=== PATIENT | female | born 1985 ===

== ENCOUNTER 2019-12-10 21:28 | Emergency (ER) | payer MEDICAID, SELFPAY ==
[2019-12-10 21:52] VITALS: BP 122/70; PULSE 76; RESP 18; TEMP 36.4; O2SAT 97
--- NOTE | 2019-12-10 22:14 | ED_ITS ---
HPI - Female Genitourinary General Chief complaint: Back Pain/Injury Stated complaint: BACK PAIN Time Seen by Provider: 12/10/19 22:13 Source: patient Mode of arrival: ambulatory Limitations: no limitations History of Present Illness HPI Narrative: 34-year-old female presents with several days of lower back pain and dysuria. She has been taking [id number]-[id number] azo with minimal effect. She does not report any fevers or chills, does not report any risk of sexually transmitted infection. She denies chest pain pressure, palpitations, shortness of breath, fevers, chills, abdominal pain, abdominal distention, weakness, dizziness, and edema. MD elicited complaint: dysuria, UTI and back pain Onset (ago): day(s) (3) Location of symptoms: low back Severity: moderate Severity scale (1-10): 5 Quality of pain: dull and aching Consistency: constant Vaginal discharge: none Vaginal bleeding: none Urinary symptoms: Dysuria, Urgency and Frequency Exacerbating factors: urination and movement Relieving factors: none Associated symptoms: denies other symptoms Sexual activity: Yes Patient : No Related Data Previous Rx's Medication Instructions Recorded ibuprofen 600 mg PO Q8H PRN #30 tab 12/11/19 levofloxacin 500 mg PO DAILY 5 Days #5 tab 12/11/19 Allergies Allergy/AdvReac Type Severity Reaction Status Date / Time shellfish derived Allergy Severe SWELLING/HI Verified 12/10/19 22:27 [SHELLFISH DERIVED] VES Review of Systems Review of Systems: Constitutional: No Fever, No Chills ENT/Mouth: No sore throat Eyes: No Eye Pain, No Swelling, No Redness Cardiovascular: No Chest Pain, No SOB Respiratory: No Cough, No Sputum, No Wheezing Gastrointestinal: No Nausea, No Vomiting, No Diarrhea, No abdominal pain Genitourinary: positive Dysuria, positive urinary frequency, positive Hematuria, Positive lower back pain, No Flank Pain, No hesitancy Musculoskeletal: No joint pain, No Myalgias Skin: No Skin Lesions, No rash Neuro: No Weakness, No Numbness, No Headache Psych: No Anxiety/Panic, No Depression Heme/Lymph: No Bruising, No Lymphadenopathy Endocrine: No Polyuria, No Polydipsia Yes all other systems are reviewed and are negative [facility] Past Medical History Attestation statement: The following information was validated with the patient. Surgical History Hx of section Social History Social History Advance Directives: No Physical Exam Vital Signs: Vital Signs: Vital Signs Temp Pulse Resp BP Pulse Ox 12/10/19 22:24 97.6 F 76 18 122/70 97 12/10/19 21:52 97.6 F 76 18 122/70 97 Body Mass Index 31.4 Appearance: Alert. Oriented X3. No acute distress. Head: Normal external exam. Normocephalic. Atraumatic. No Castrejon signs noted. No raccoon eyes noted Eyes: PERRLA. EOMI. Conjunctiva and sclera normal. Eyelids normal. ENT: TM's Normal. Pharynx normal. Uvula midline. Moist mucous membranes. No trismus noted. No drooling noted. No muffled voice noted. Neck: Normal inspection. Neck supple. No adenopathy. Thyroid Normal. No meningeal signs. No neck mass noted. CVS: Normal heart rate and rhythm. Heart sound normal. No murmurs noted. Pulses equal to all extremities. Respiratory: No respiratory distress. Painless inspiration. Breath sounds normal. No wheezes/rales/rhonchi noted. Chest nontender. No accessory muscle usage noted or decreased air movement noted. Abdomen: Soft and nontender. Bowel sounds normal in all 4 quadrants. No distention noted. No organomegaly noted. No visible injury noted. Back: No CVA tenderness. Full range of motion noted. Skin: Skin warm and dry. Normal skin color. Normal skin turgor. No rashes/lesions/lacerations noted. Extremities: No lower extremity edema. Extremities exhibit normal range of motion. Extremities nontender. Neuro: cranial nerves 2-12 intact, no focal neural deficits, strength 5/5 to all extremities, No motor deficit. No sensory deficit. Reflexes normal. Course Course Course Narrative: 34-year-old female presents with urinary symptoms. We will order urinalysis. She is afebrile, nontoxic appearing, does not have any CVA tenderness, no abdominal tenderness to deep palpation. Vital signs are hemodynamically stable and within normal limits. urinalysis incomplete due to patient's azo use. Plan of care is to treat for urinary tract infection, which patient agrees to. Patient will be discharged home in stable condition. Patient verbalized understanding of and agrees to plan of care discharge home. MDM - Female Genitourinary Differential Diagnosis Differential diagnosis: Likely urinary tract infection and cystitis Medical Records Attestation: I reviewed the patient's medical records. Lab Data Attestation: I reviewed the patient's lab results. Labs: Lab Results 12/10/19 12/10/19 Range/Units 23:01 23:01 Urine Color ORANGE Urine Appearance CLEAR Urine pH TNP Ur Specific Bricelyn TNP Urine Protein TNP Urine Glucose (UA) TNP Urine Ketones TNP Urine Blood TNP Urine Nitrite TNP Ur Leukocyte Esterase TNP Urine RBC 0-2 (0) /HPF Urine WBC 0-2 (0-4) /HPF Ur Squamous Epith Cells 1+ /LPF Urine Bacteria TRACE /LPF Urine Test NEGATIVE (NEGATIVE) Discharge Plan Discharge Clinical Impression: Urinary tract infection Qualifiers: Urinary tract infection type: acute cystitis Hematuria presence: with hematuria Qualified Code(s): N30.01 - Acute cystitis with hematuria Patient Disposition: Home, Self-Care Instructions: Urinary Tract Infection in Women (ED) Additional Instructions: you were evaluated for dysuria and lower back pain. We are treating you for urinary tract infection. Please take Levaquin as directed. This medication is an antibiotic. We prescribed Motrin. Please take this medication as directed for pain management. Please drink plenty of fluids. If symptoms persist, get worse, or are concerning please return to the emergency department immediately. Thank you for choosing this emergency department for evaluation. Please follow-up with primary care physician as needed. Return to the emergency department for any new, concerning, or worsening symptoms. Prescriptions: New levofloxacin 500 mg tablet 500 mg PO DAILY 5 Days Qty: 5 RF: 0 ibuprofen 600 mg tablet 600 mg PO Q8H PRN (Reason: fever or pain) Qty: 30 RF: 0
[2019-12-10 22:24] VITALS: BP 122/70; PULSE 76; RESP 18; TEMP 36.4; O2SAT 97; BMI 31.4
[2019-12-10 23:09] LABS: Appearance Urine CLEAR
[2019-12-10 23:10] LABS: Color Urine ORANGE
[2019-12-10 23:12] LABS: UPreg QC Valid YES; Urine Pregnancy NEGATIVE (NEGATIVE)
[2019-12-10 23:41] LABS: RBC Urine 0-2 /HPF (0); Squamous Epithelial Cell Urine 1+ /LPF; WBC Urine 0-2 /HPF (0-4)
[2019-12-10 23:42] LABS: Bacteria Urine TRACE /LPF
[2019-12-11] MEDS: levoFLOXacin 500 MG TABLET PO (01:10)
[2019-12-11] MEDS: Ibuprofen 600 MG TABLET PO (01:10)
== END 2019-12-11 01:15 | disposition home or self-care (01) ==
PROVIDERS: Nurse Practitioner Family; Emergency Provider Emergency Medicine; PCP Internal Medicine Geriatric Medicine
DX: M54.5 Low back pain (principal); N30.01 Acute cystitis with hematuria; Z79.899 Other long term (current) drug therapy
CPT/HCPCS: 81003; 81015; 81025; 99283

== ENCOUNTER 2020-09-19 19:44 | Emergency (ER) | payer MEDICAID, SELFPAY | END 2020-09-19 21:22 | disposition left against medical advice (07) | PROVIDERS: Emergency Provider Emergency Medicine; PCP Internal Medicine Geriatric Medicine | DX: M54.9 Dorsalgia, unspecified (principal) ==

== ENCOUNTER 2021-01-11 22:21 | Emergency (ER) | payer MEDICAID, SELFPAY ==
[2021-01-11 22:25] VITALS: BP 143/93; PULSE 75; RESP 18; TEMP 36.6; O2SAT 98; BMI 31.4
--- NOTE | 2021-01-11 23:11 | ED.HA ---
HPI - Headache General Chief Complaint: Headache Stated Complaint: headache Time Seen by Provider: 01/11/21 23:04 Source: patient Mode of arrival: ambulatory Limitations: no limitations History of Present Illness HPI Narrative: 35-year-old female presenting to the ER with migraine headache for the last 2 days. She states it came on gradually and has not really gone away with the help of Tylenol. The pain is located on both sides and top of her head. It radiates down into her neck and she has some sore muscles. She reports some photosensitivity but no sensitivity to sound. She reports some sweating episodes throughout the day today but denies any fever or chills. She denies any vision changes, dizziness, confusion, lethargy, weakness, numbness, tingling. She states she used to get migraine headaches a while ago but it has been a few years. MD elicited complaint: headache and migraine Pertinent past history: migraines Onset (ago): day(s) (2) Onset description: gradually Location: down into neck and generalized Severity: moderate Pain scale (0-10): 7 Quality & Timing: aching and throbbing Exacerbating factors: none Relieving factors: nothing Context: occurred at rest Associated symptoms: photophobia and eye pain Treatments prior to arrival: acetaminophen Related Data Previous Rx's Medication Instructions Recorded ibuprofen 600 mg tablet 600 mg PO Q8H PRN #30 tab 12/11/19 levofloxacin 500 mg tablet 500 mg PO DAILY 5 Days #5 tab 12/11/19 [id number]-[id number] 1 cap PO Q6H PRN #10 cap 01/11/21 50 mg-300 mg-40 mg capsule (Fioricet) Allergies Allergy/AdvReac Type Severity Reaction Status Date / Time shellfish derived Allergy Severe SWELLING/HI Verified 12/10/19 22:27 [SHELLFISH DERIVED] VES Review of Systems Review of Systems: Constitutional: No Fever, No Chills ENT/Mouth: No sore throat, No Rhinorrhea, No Swallowing Difficulty Eyes: + Eye Pain, No Swelling, No Redness Cardiovascular: No Chest Pain, No SOB Respiratory: No Cough, No Sputum Gastrointestinal: No Nausea, No Vomiting, No Diarrhea, No abdominal Pain Musculoskeletal: No joint pain, + Myalgias Skin: No Skin Lesions, No rash Neuro: No Weakness, No Numbness, No Dizziness, + Headache Psych: No Anxiety/Panic, No Depression Heme/Lymph: No Bruising, No Lymphadenopathy Endocrine: No Polyuria, No Polydipsia PMF Past Medical History Surgical History Hx of section Social History Social History Advance Directives: No Advance Directives Information Provided: No Physical Exam Vital Signs: Vital Signs: Last Vital Signs Temp 98 F 01/11/21 22:25 Pulse 75 01/11/21 22:25 Resp 18 01/11/21 22:25 BP 143/93 H 01/11/21 22:25 Pulse Ox 98 01/11/21 22:25 Body Mass Index 31.4 Appearance: Alert. Oriented X3. No acute distress. Eyes: Pupils equal, round and reactive to light. EOMI, no nystagmus. ENT: Pharynx normal. Neck: Normal inspection. Neck supple. CVS: Normal heart rate and rhythm. Pulses normal. Respiratory: No respiratory distress. Breath sounds normal. Abdomen: Soft and nontender. +BS x4 Skin: Skin warm and dry. Normal skin color. Normal skin turgor. No rashes. Extremities: No lower extremity edema. Neuro: Oriented X 3. No motor deficit. No sensory deficit. Ambulates with steady gait Course Course Course Narrative: 35 yo female presenting with migraine headache for the last 2 days. She has no fever meningeal signs. She appears well on exam. No neurological deficits. Will treat with Toradol, Reglan, Benadryl and reassess. Reevaluation(s) Reevaluation #1: Patient feels improved after meds. She is stable for discharge home. MDM - Headache Lab Data Labs: Lab Results 01/11/21 Range/Units 23:12 COVID-19 ([facility]) Negative (Negative) COVID-19 Clin Com See Note Discharge Plan Discharge Clinical Impression: Headache Qualifiers: Headache type: other headache syndrome Qualified Code(s): G44.89 - Other headache syndrome Patient Disposition: Home, Self-Care Instructions: Acute Headache (ED) Prescriptions: New vzmmcedtwn-twekomdtjurwb-tqmz [Fioricet] 50-300-40 mg capsule 1 cap PO Q6H PRN (Reason: headache) Qty: 10 RF: 0 No Action levofloxacin 500 mg tablet 500 mg PO DAILY 5 Days Qty: 5 RF: 0 ibuprofen 600 mg tablet 600 mg PO Q8H PRN (Reason: fever or pain) Qty: 30 RF: 0
[2021-01-11] MEDS: diphenhydrAMINE HCL 25 MG TABLET 50 MG PO (23:33)
[2021-01-11] MEDS: Ibuprofen 600 MG TABLET PO (23:33)
[2021-01-11 23:35] LABS: COVID-19 Test Negative (Negative)
[2021-01-11] MEDS: Metoclopramide HCl 5 MG TABLET PO (23:50)
[2021-01-12] MEDS: Acetaminophen 325 MG TABLET 975 MG PO (01:10)
== END 2021-01-12 01:25 | disposition home or self-care (01) ==
PROVIDERS: Physician Assistant; Emergency Provider Student in an Organized Health Care Education/Training Program; PCP Internal Medicine Geriatric Medicine
DX: G44.89 Other headache syndrome (principal); Z79.899 Other long term (current) drug therapy; Z20.822 Contact with and (suspected) exposure to COVID-19
CPT/HCPCS: 36415; 87635; 99283; Q0163

== ENCOUNTER 2021-02-27 11:03 | Outpatient (REF) | payer MEDICAID, SELFPAY ==
[2021-02-27 12:53] LABS: Binax Internal Control QC Valid; Binax Now Covid-19 Ag Positive (Negative)
== END 2021-02-27 11:04 | disposition home or self-care (01) ==
LOC: HO.LAB 11:03
PROVIDERS: Visit Provider Internal Medicine
DX: Z20.822 Contact with and (suspected) exposure to COVID-19 (principal)
CPT/HCPCS: 36415; C9803

== ENCOUNTER 2021-03-17 21:02 | Emergency (ER) | payer MEDICAID, SELFPAY ==
--- NOTE | ~2021-03-17 | XR_ITS ---
EXAMINATION: XR CHEST CLINICAL INFORMATION: Cough and shortness of breath COMPARISON: 07/09/2016 TECHNIQUE: Frontal view of the chest was obtained. FINDINGS: No significant abnormality is noted involving the heart, lungs, mediastinum, bony thorax or soft tissues. XR/XR chest 1V IMPRESSION: Unremarkable examination.
[2021-03-17 21:25] VITALS: BP 123/79; PULSE 86; RESP 18; TEMP 35.8; O2SAT 99; BMI 32.2
[2021-03-17 22:07] LABS: COVID-19 Test Negative (Negative); IDNOW Serial# 9DD0AD1C
--- NOTE | 2021-03-18 00:10 | ED_ITS ---
HPI - General Adult General Chief complaint: Dyspnea Stated complaint: asthma Time Seen by Provider: 03/18/21 00:08 Source: patient Mode of arrival: ambulatory Limitations: no limitations History of Present Illness HPI narrative: Patient is a 35 year old female presenting to the emergency department today with wheezing. Patient states that she has a history of asthma and has been wheezing more the last few days. Patient denies any dizziness, lightheadedness, abdominal pain, nausea, vomiting, fever, chills, blurry vision, double vision, loss of vision, chest pain, difficulty breathing, shortness of breath, back pain, night sweats, pain with urination, increased urinary frequency, increased urinary urgency, blood in her urine or stool, syncope or a near syncopal episode, recent trauma or falls, bowel incontinence, bladder incontinence, bowel retention, bladder retention, or any other complaints at this time. Onset (ago): day(s) Relieving factors: none Exacerbating factors: none Associated symptoms: denies other symptoms Related Data Previous Rx's Medication Instructions Recorded ibuprofen 600 mg tablet 600 mg PO Q8H PRN #30 tab 12/11/19 levofloxacin 500 mg tablet 500 mg PO DAILY 5 Days #5 tab 12/11/19 [id number] 1 cap PO Q6H PRN #10 cap 01/11/21 50 mg-300 mg-40 mg capsule (Fioricet) Allergies Allergy/AdvReac Type Severity Reaction Status Date / Time shellfish derived Allergy Severe SWELLING/HI Verified 12/10/19 22:27 [SHELLFISH DERIVED] VES Review of Systems Verdana 4l Constitutional: Verdana 4d Constitutional: Verdana 4d Verdana 4d Reports no additional constitutional complaints, Denies chills, Denies fever(s) and Denies night sweats Verdana 4l Eyes: Verdana 4d Verdana 4d Eyes: Verdana 4d Reports no additional eye complaints, Denies blurry vision, Denies change in vision, Denies diplopia, Denies eye discharge, Denies loss of vision and Denies eye pain Verdana 4l ENT: Verdana 4d Denies dizziness Verdana 4l Cardiovascular: Verdana 4d Cardiovascular: Verdana 4d Verdana 4d Reports no additional cardiovascular complaints, Denies chest pain, Denies lightheadedness, Denies Loss of Consciousness and Denies dyspnea Verdana 4l Respiratory: Verdana 4d Verdana 4d Respiratory: Verdana 4d Reports no additional respiratory complaints, Denies dyspnea and Reports wheezing Verdana 4l Gastrointestinal: Verdana 4d Gastrointestinal: Verdana 4d Verdana 4d Reports no additional gastrointestinal complaints, Denies abdominal pain, Denies melena, Denies hematochezia, Denies change in bowel habits and Denies change in stool character Verdana 4l Genitourinary: Verdana 4d Verdana 4d Genitourinary: Verdana 4d Denies hematuria, Denies urinary frequency, Denies dysuria, Denies urinary incontinence, Denies urinary hesitancy and Denies urinary urgency Verdana 4l Musculoskeletal: Verdana 4d Musculoskeletal: Verdana 4d Verdana 4d Reports no additional musculoskeletal complaints, Denies numbness and Denies tingling Verdana 4l Neurologic: Verdana 4d Denies dizziness, Denies loss of vision, Denies numbness and Denies tingling Verdana 4l Psychiatric: Verdana 4d Verdana 4d Psychiatric: Verdana 4d Reports no additional psychiatric complaints Verdana 4l Endocrine: Verdana 4d Verdana 4d Endocrine: Verdana 4d Reports no additional endocrine complaints Verdana 4l Hematologic/Lymphatic: Verdana 4d Hematologic/Lymphatic: Verdana 4d Verdana 4d Reports no additional hematologic/lymphatic complaints Verdana 4l Allergic/Immunologic: Verdana 4d Allergic/Immunologic: Verdana 4d Verdana 4d Reports no additional allergic/immunologic complaints and Reports wheezing PMFSH Past Medical History Attestation statement: The following information was validated with the patient. Source: old records reviewed Medical History Asthma Surgical History Hx of section Social History Social History Advance Directives: No Patient : No Physical Exam Verdana 4l Vital Signs: Verdana 4d Verdana 4d Vital Signs: Verdana 4d Verdana 4Bd Last Vital Signs Verdana 4d Coffee Weigher New 4d Coffee Weigher New 4d Temp 96.5 F L 03/17/21 21:25 Coffee Weigher New 4d Pulse 74 03/18/21 01:02 Coffee Weigher New 4d Resp 14 03/18/21 01:02 BP 132/88 03/18/21 00:31 Pulse Ox 98 03/18/21 00:31 BMI result Body Mass Index 32.2 Const: General: cooperative, no acute distress, alert and awake Nutritional Appearance: well nourished Orientation/consciousness: patient oriented x3 Limitations: no limitations HENMT: Head: Yes normal to inspection and Yes atraumatic Ears: hearing grossly normal bilaterally and external ears normal General nose exam: Normal external nose present, no nasal discharge noted and no epistaxis Face and sinus: Yes normal facial exam, No abrasion and No laceration Mouth: Normal oral and palatal mucosa present, no drooling and no muffled voice Eyes: General: appearance normal, both eyes and all related structures Periorbital: periorbital findings normal Eyelids: Yes eyelids normal Conjunctivae: conjunctivae normal Pupils: Equal, round and reactive pupils present EOM: EOMs intact bilaterally Neck: Neck: Yes normal visual inspection, Yes full ROM and Yes no lymphadenopathy Chest: Chest palpation & inspection: normal inspection of the chest Resp: Effort & Inspection: normal respiratory effort and able to speak in complete sentences Auscultation: wheezes scattered wheezes and throughout Cardio: Rate: regular rate Rhythm: regular rhythm GI: Inspection: Yes normal to inspection Neuro: General: patient oriented x3 and moves all extremities Cranial nerves: Yes Equal, round and reactive pupils present Cognition (Neuro): normal cognition Motor exam (neuro): 5/5 motor strength present throughout Sensory Exam: Normal double simultaneous stimulation for sensation Coordination: dtgtqw-jj-efoy test normal Extrem: General: Yes normal to inspection, Yes full ROM and Yes capillary refill normal Psych: Appearance: grossly normal Mental Status: mental status grossly normal A ffect: normal affect Attitude: cooperative Thought process: Normal thought process present Thought content: Normal thought content present Insight: Good insight present (Psych) Course Course Course Narrative: patient's chest x-ray was read by the radiologist as having no acute process. Medical Decision Making MDM Narrative Medical decision making narrative: Patient is a 35 year old female presenting to the emergency department today with wheezing. Patient's physical exam showed bilateral wheezing throughout but was otherwise unremarkable. Patient's rapid COVID-19 test was negative. Patient's chest x-ray showed no acute process. I explained my physical exam findings as well as all test results to the patient. I answered all questions asked by the patient. Patient received IM Decadron and an hour long duoneb which she stated helped her symptoms significantly. I stressed the importance of the patient taking her medication as prescribed. I stressed the importance of the patient following up with her primary care provider. I stressed the importance of the patient returning to the emergency department immediately if her symptoms were to worsen or if she were to develop any dizziness, shortness of breath, difficulty breathing, chest pain, blurry vision, loss of vision, nausea, vomiting, abdominal pain, fever, chills, back pain, or any other complaints. Patient verbalized agreement and understanding with this treatment plan and discharge. Differential Diagnosis Differential Diagnosis: asthma exacerbation, wheezing, medical examination Medical Records Medical records reviewed: Yes I reviewed the patient's medical records. Lab Data Lab results reviewed: Yes I reviewed the patient's lab results. Labs: Lab Results 03/17/21 Range/Units 21:43 COVID-19 ([facility]) Negative (Negative) COVID-19 Clin Com See Note Discharge Plan Discharge Clinical Impression: Asthma Patient Disposition: Home, Self-Care Additional Instructions: Call to discuss finding and establishing with a primary care provider. Prescriptions: No Action levofloxacin 500 mg tablet 500 mg PO DAILY 5 Days Qty: 5 0RF ibuprofen 600 mg tablet 600 mg PO Q8H PRN (Reason: fever or pain) Qty: 30 0RF [id number]-[id number] [Fioricet] 50-300-40 mg capsule 1 cap PO Q6H PRN (Reason: headache) Qty: 10 0RF Print Language: Honduran
[2021-03-18 00:31] VITALS: BP 132/88; PULSE 72; RESP 16; O2SAT 98
[2021-03-18] MEDS: dexAMETHasone sod phosphate 10 MG/ML VIAL IM (00:33)
[2021-03-18] MEDS: Albuterol/Iprat 2.5/0.5MG 3 ML AMPUL.NEB INHALE (01:00)
[2021-03-18] MEDS: Albuterol Sulfate (0.083%) 2.5 MG/3 ML VIAL.NEB 7.5 MG INHALE (01:01)
[2021-03-18 01:02] VITALS: PULSE 74; RESP 14; O2SAT 97
[2021-03-18 01:51] VITALS: BP 136/81; PULSE 88; RESP 16; O2SAT 99
== END 2021-03-18 02:04 | disposition home or self-care (01) ==
PROVIDERS: Emergency Provider Emergency Medicine
DX: J45.909 Unspecified asthma, uncomplicated (principal); Z20.822 Contact with and (suspected) exposure to COVID-19
CPT/HCPCS: 71045; 87635; 94640; 94644; 96372; 99284; J1100

== ENCOUNTER 2022-06-18 10:23 | Outpatient (REF) | payer MEDICAID, SELFPAY ==
--- NOTE | ~2022-06-18 | XR_ITS ---
EXAMINATION: XR CHEST 2 VIEWS CLINICAL INFORMATION: Chest pain. COMPARISON: Prior chest radiographs, most recently 03/07/2017. TECHNIQUE: Frontal and lateral views of the chest were obtained. FINDINGS: The heart, great vessels, pulmonary vasculature and mediastinum are normal. The lungs show no focal infiltrate, effusion or pneumothorax. There is no acute osseous abnormality. XR/XR chest 2V IMPRESSION: No active cardiopulmonary disease.
[2022-06-18 11:07] LABS: MANUAL DIFF FLAG NO
[2022-06-18 12:31] LABS: Basophils Percent Auto 0.4 % (0-2); Eosinophils Absolute Auto 0.2 X10*3/uL (0.0-0.4); Eosinophils Percent Auto 3.1 % (0-4); Hematocrit 37.4 % (37.0-47.0); Hemoglobin 12.3 g/dl (12.0-16.0); Imm Gran Abs Auto 0.02 X10*3/uL (0.00-0.03); Imm Gran Pct Auto 0.4 % (0.0-0.4); Lymphocytes Absolute Auto 1.9 X10*3/uL (1.2-4.9); Lymphocytes Percent Auto 34.3 % (20-40); Mean Corpuscular HGB Conc 32.9 g/dl (31.0-35.0); Mean Corpuscular Hemoglobin 28.9 pg (27.0-33.0); Mean Corpuscular Volume 87.8 fL (80.0-98.0); Monocytes Absolute Auto 0.5 X10*3/uL (0.1-1.2); Monocytes Percent Auto 8.5 % (2-11); Neutrophils Absolute Auto 2.9 x10*3/uL (2.0-8.3); Neutrophils Percent Auto 53.3 % (45-73); Platelet Count 204 X10*3/uL (160-400); Red Blood Count 4.26 X10*6/uL (4.20-5.50); Red Cell Distribution Width 14.1 % (11.0-16.0); White Blood Count 5.4 X10*3/uL (4.8-10.8)
[2022-06-18 13:17] LABS: Erythrocyte Sedimentation Rate 12 MM/HR (0-20)
== END 2022-06-18 10:24 | disposition home or self-care (01) ==
LOC: HO.LAB 10:23
PROVIDERS: PCP Internal Medicine Geriatric Medicine; Visit Provider Hospitalist
DX: L20.9 Atopic dermatitis, unspecified (principal); R07.9 Chest pain, unspecified; J45.40 Moderate persistent asthma, uncomplicated; J30.9 Allergic rhinitis, unspecified
CPT/HCPCS: 36415; 71046; 82785; 85025; 85652; 86003; 99202

== ENCOUNTER 2022-08-18 15:21 | Emergency (ER) | payer OTHER, SELFPAY ==
--- NOTE | 2022-08-18 | ECG_ITS ---
Test Reason : cp Blood Pressure : / mmHG Vent. Rate : 074 BPM Atrial Rate : 074 BPM P-R Int : 124 ms QRS Dur : 086 ms QT Int : 394 ms P-R-T Axes : 029 022 024 degrees QTc Int : 437 ms Normal sinus rhythm Normal ECG When compared with ECG of 20-MAY-2018 10:15, No significant change was found Referred By: Vanessa Galeas Electronically Signed By:Charles Siegel
[2022-08-18 15:36] VITALS: BP 123/79; PULSE 91; RESP 17; TEMP 36.2; O2SAT 97
[2022-08-18 15:42] VITALS: BP 123/79; BP 128/90; PULSE 91; PULSE 94; RESP 17; TEMP 36.2; O2SAT 97; BMI 30.9
[2022-08-18 16:43] LABS: Anion Gap 13 (12-20); Blood Urea Nitrogen 12 mg/dL (9-16); Calcium 9.8 mg/dL (8.4-10.2); Carbon Dioxide 23 mmol/L (22-29); Chloride 109 mmol/L (96-108); Creatinine Clr Calc Pharmacy 94.9; Estimated Glomerular Filt Rate > 60; Glucose Random 128 mg/dL (60-115); Potassium 3.8 mmol/L (3.3-5.1); Sodium 141 mmol/L (135-145)
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
[2022-08-18] MEDS: Acetaminophen 325 MG TABLET 975 MG PO (16:54)
== END 2022-08-18 18:47 | disposition home or self-care (01) ==
PROVIDERS: Registered Nurse Emergency; Emergency Provider Emergency Medicine Emergency Medical Services; PCP Internal Medicine Geriatric Medicine
DX: Z04.1 Encounter for examination and observation following transport accident (principal); R07.9 Chest pain, unspecified; Z87.891 Personal history of nicotine dependence
CPT/HCPCS: 36415; 71045; 80048; 84484; 85027; 93005; 99283; 99284

== ENCOUNTER 2022-11-23 10:20 | Outpatient (REF) | payer MEDICAID, SELFPAY ==
[2022-11-29 01:38] LABS: HPV mRNA E6/E7 rflx Not Detected (Not Detected)
== END 2022-11-23 10:21 | disposition home or self-care (01) ==
LOC: HO.LNP 10:20
PROVIDERS: PCP Internal Medicine Geriatric Medicine; Visit Provider Advanced Practice Midwife
DX: Z01.419 Encounter for gynecological examination (general) (routine) without abnormal findings (principal); N94.6 Dysmenorrhea, unspecified; Z11.3 Encounter for screening for infections with a predominantly sexual mode of transmission; Z98.51 Tubal ligation status; Z79.899 Other long term (current) drug therapy; Z98.890 Other specified postprocedural states
CPT/HCPCS: 0353U; 87480; 87510; 87624; 87660; 88142; 99385

== ENCOUNTER 2022-11-23 10:20 | Outpatient (AMB) | payer MEDICAID, SELFPAY ==
--- NOTE | 2022-11-23 10:43 | MHC.OFFVIS ---
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 Present (Aidyn) Allergies shellfish derived [SHELLFISH DERIVED] Allergy (Severe, Verified 11/23/22 10:49) SWELLING/HIVES Medication List - Last Reconciled 11/23/22 by Kina Mendez CNM albuterol sulfate 90 mcg/actuation (Ventolin HFA) 2 puffs inhalation Q6H PRN budesonide-formoterol 160-4.5 mcg/actuation (Symbicort) 2 puffs inhalation BID 30 days uxjjkbncsn-ibnovatkvcobu-murz 50-300-40 mg (Fioricet) 1 cap PO Q6H PRN cyclobenzaprine 5 mg PO TID PRN fluticasone propion-salmeterol 250-50 mcg/dose (Advair Diskus) 1 inh inhalation Q12H fluticasone propionate 50 mcg/actuation (Flonase Allergy Relief) 1 spray intranasal Q12H ibuprofen 600 mg PO Q8H PRN ibuprofen 600 mg PO Q8H PRN lidocaine 5% 1 patch topical DAILY montelukast 10 mg PO DAILY Is last menstrual period known: No (October but not sure of the date) Post menopausal: No HPI dysmenorrhea/PCP referral HPI Details 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 She does have a history of abnormal Pap smears. She says she has been healthy and she is doing well she had a tubal ligation after her last at some point so she is not worried about she does get regular periods and they are getting a little cramp ear as time goes by but they are not even enough for her to take ibuprofen or anything so she just deals with it. Her last period was sometime the middle of October so she is expecting 1 maybe in the few days or a week. She says her only health problem is her asthma but she got a new puppy this year was the [place] so she thinks the hair might be contributing to that a little bit to she will be getting her vaccines for COVID and otherwise when they come up. She is not really worried about STIs but is open to testing will long with the Pap but she had blood work done with her primary so she is not worried she goes to the [facility] with Dr. Preston Her children delivered with the midwifery practice are 22 and 12. [facility] Medical History (Updated 11/23/22 @ 11:41 by Kina Mendez CNM) Hx of LEEP (loop electrosurgical excision procedure) of cervix complicating Chest pain Atopic dermatitis Chronic allergic rhinitis Asthma Surgical History (Updated 11/23/22 @ 11:41 by Kina Mendez CNM) Hx of bilateral breast reduction surgery Hx of tubal ligation Social History (Updated 11/23/22 @ 10:53 by SOURAV Carey) Patient Tobacco Use Status: Current someday Tobacco user Tobacco use type: Cigarette Cigarettes Per Day: 2 Female Reproductive History Menstrual Age of Menarche: 13 control method: other (tubal ligation) Total pregnancies: 3 Full term: 2 Number of Living Children: 2 Ab induced: 1 Date of last pap smear: 10/27/08 (ASCUS) History of abnormal pap smear: Yes (LORI 2 2007, ASCUS 2005) Physical Exam Vital Signs: BMI result Body Mass Index 31.6 Const General: healthy appearing, comfortable, no acute distress, well developed and alert Nutritional Appearance: average body habitus Orientation/consciousness: patient oriented x3 Limitations: no limitations HEENT Head: Yes normocephalic Neck Neck: Yes normal visual inspection Chest Chest palpation & inspection: normal inspection of the chest Breast/axilla inspection: normal inspection of the breasts and normal inspection of the axillae Breast/axilla palpation: normal palpation of the breasts and normal palpation of the axillae Resp Effort & Inspection: normal respiratory effort GI Inspection: Yes normal to inspection, No Abdominal wall edema and No distended Palpation (GI): Soft to palpation and nontender Other: Cervix difficult to visualize secondary to patient tension during exam. So bimanual necessary to find cervix so gel might possibly obscure Pap. Cervix was posterior parous normal appearing mucus was completely normal appearing. Cervix long thick closed mobile nontender uterus midposition to anteverted nontender adnexa nontender extremely strong tone with involuntary Kegel's patient was able to control him as well.. General: Yes bladder normal to palpation External Female Exam: normal external appearance and normal appearance of the urethra Speculum Exam - Vagina: normal appearance of the vagina, normal palpation and normal vaginal discharge Speculum Exam - Cervix: normal appearance of the cervix, normal palpation and nontender Bimanual exam- vagina & uterus: normal bimanual exam, normal palpation, uterine size normal, bladder normal to palpation, consistency normal, normal palpation, uterine mobility normal, uterine shape normal, No Cervical tenderness present, non-tender and no cervical motion tenderness Bimanual Exam- Adnexa, other: normal adnexae, no masses, normal and No adnexal tenderness Neuro General: patient oriented x3 Assessment & Plan Assessment & Plan (1) Hx of LEEP (loop electrosurgical excision procedure) of cervix complicating : Comment: pap done 11/23/22. Code(s): O34.40 - Maternal care for other abnormalities of cervix, unspecified trimester; Z98.890 - Other specified postprocedural states (2) Well woman exam with routine gynecological exam: Code(s): Z01.419 - Encounter for gynecological examination (general) (routine) without abnormal findings (3) Screen for sexually transmitted diseases: Code(s): Z11.3 - Encounter for screening for infections with a predominantly sexual mode of transmission (4) Hx of tubal ligation: Code(s): Z98.51 - Tubal ligation status Plan -----Discussed in this visit the following: healthy balanced diet, regular and consistent exercise, getting recommended health screens, doing the best she can for her particular health concerns, kegel exercises, pap smear screening and followup recommendations, mammography screening and SBE, normal changes in cycles in her life stage--- . Will await the results of her Pap smear depending on results the frequency of future Paps will be reviewed. She is not worried about any other STIs she has extremely excellent tone with Kegel and is taking good care of herself her only health concern is her asthma which currently is fairly well controlled Coding Level of Care Code New Pt Prev Care [id number] Diagnoses Hx of LEEP (loop electrosurgical excision procedure) of cervix complicating O34.40; Z98.890 Well woman exam with routine gynecological exam Z01.419 Screen for sexually transmitted diseases Z11.3 Hx of tubal ligation Z98.51
[2022-11-23 10:44] VITALS: BMI 31.6
== END 2022-11-23 11:40 | disposition home or self-care (01) ==
PROVIDERS: PCP Internal Medicine Geriatric Medicine; Visit Provider Advanced Practice Midwife
DX: O34.40 Maternal care for other abnormalities of cervix, unspecified trimester (principal); Z98.890 Other specified postprocedural states; Z01.419 Encounter for gynecological examination (general) (routine) without abnormal findings; Z11.3 Encounter for screening for infections with a predominantly sexual mode of transmission; Z98.51 Tubal ligation status
CPT/HCPCS: 99385

== ENCOUNTER 2022-12-17 09:13 | Emergency (ER) | payer MEDICAID, SELFPAY ==
[2022-12-17 09:35] VITALS: BP 125/72; PULSE 70; RESP 18; TEMP 36.3; O2SAT 97; BMI 31.2
--- NOTE | 2022-12-17 09:52 | ED_ITS ---
HPI - Headache General Chief Complaint: Headache Stated Complaint: Headache Time Seen by Provider: 12/17/22 09:51 Source: patient Mode of arrival: ambulatory Limitations: no limitations History of Present Illness HPI Narrative: 37 year old female with pmhx significant for allergic rhinitis, atopic dermatitis, and asthma who presents to the ED for evaluation of MADRID x5 days. States that her headache is located to the top of her her head and does not radiate. Describes it as a pounding sensation. Admits to mild neck pain, nausea without vomiting and photophobia. Not nauseous at present. Has been taking Tylenol and Advil without relief of symptoms. Last dose of Advil at 0640 today. Reports history of migraines. Does not take anything for this on a daily basis. Denies dizziness, fever, chills, vision changes, scalp tenderness, jaw pain, chest pain, shortness of breath, LE pain/swelling. Related Data Home Medications Medication Instructions Recorded Confirmed albuterol sulfate 90 mcg/actuation 2 puff inhalation Q6H PRN 06/18/22 11/23/22 aerosol inhaler (Ventolin HFA) fluticasone 250 mcg-salmeterol 50 1 inh inhalation Q12H 06/18/22 11/23/22 mcg/dose blistr powdr for inhalation (Advair Diskus) fluticasone propionate 50 1 spray intranasal Q12H 06/18/22 11/23/22 mcg/actuation nasal spray,suspension (Flonase Allergy Relief) montelukast 10 mg tablet 10 mg PO DAILY 06/18/22 11/23/22 Previous Rx's Medication Instructions Recorded ibuprofen 600 mg tablet 600 mg PO Q8H PRN fever or pain 12/11/19 #30 tabs vkouauiayf-pisaeypevgszp-ilkuyscy 1 cap PO Q6H PRN headache #10 caps 01/11/21 50 mg-300 mg-40 mg capsule (Fioricet) budesonide-formoterol HFA 160 2 puff inhalation BID 30 days 06/18/22 mcg-4.5 mcg/actuation aerosol #10.2 grams inhaler (Symbicort) cyclobenzaprine 5 mg tablet 5 mg PO TID PRN muscle spasm #10 08/18/22 tabs ibuprofen 600 mg tablet 600 mg PO Q8H PRN pain #20 tabs 08/18/22 lidocaine 5 % topical patch 1 patch topical DAILY #15 ea 08/18/22 ukbuuhpkoa-zpugoqmpcbrqn-kbniztvv 1 cap PO Q8H PRN pain (scale score 12/17/22 50 mg-300 mg-40 mg capsule 4-6) #14 caps (Fioricet) cyclobenzaprine 5 mg tablet 5 mg PO BEDTIME PRN muscle spasm 12/17/22 #7 tabs lidocaine 5 % topical patch 1 patch topical DAILY #15 ea 12/17/22 (Lidoderm) Allergies Allergy/AdvReac Type Severity Reaction Status Date / Time shellfish derived Allergy Severe SWELLING/HI Verified 12/17/22 09:38 [SHELLFISH DERIVED] VES Review of Systems Review of Systems: Constitutional: No fever, chills, fatigue, night sweats, weight changes ENT/Mouth: No ear pain, hearing loss, nasal congestion, sinus pain, rhinorrhea, sore throat Eyes: No eye pain, swelling, redness, vision changes, discharge, +photophobia Cardio: No chest pain, palpitations, HERNANDEZ, orthopnea, peripheral edema Pulm: No SOB, cough, sputum, wheezing, dyspnea, hemoptysis GI: +nausea, No vomiting, hematemesis, abdominal pain, diarrhea, constipation, hematochezia, melena : No irregular bleeding, dysuria, frequency, urgency, hesitancy, hematuria MSK: No back pain, neck pain, joint pain, myalgias Skin: No lesions, rashes Neuro: No weakness, numbness, paresthesias, LOC, dizziness, +headache All other systems reviewed and are negative. [facility] Past Medical History Attestation statement: The following information was validated with the patient. Source: old records reviewed and nursing notes reviewed Medical History Hx of LEEP (loop electrosurgical excision procedure) of cervix complicating Chest pain Atopic dermatitis Chronic allergic rhinitis Asthma Surgical History Hx of bilateral breast reduction surgery Hx of tubal ligation Social History Social History Patient Tobacco Use Status: Current someday Tobacco user Tobacco use type: Cigarette Cigarettes Per Day: 2 Smoked in Last 30 Days: No Use of substances other than those prescribed or required for medical reasons: No Advance Directives: No Physical Exam Vital Signs: Vital Signs: Last Vital Signs Temp 97.3 F 12/17/22 09:35 Pulse 70 12/17/22 09:35 Resp 18 12/17/22 09:35 BP 125/72 12/17/22 09:35 Pulse Ox 97 12/17/22 09:35 O2 Del Method Room Air 12/17/22 09:35 BMI result Body Mass Index 31.2 Vital signs stable Const: Other: +Patient lying in hospital bed with the lights dimmed. General: cooperative, no acute distress, alert and awake Orientation/consciousness: patient oriented x3 Limitations: no limitations HEENT: Other: + No scalp tenderness. No palpable temp oral artery. Head: Yes normal to inspection, Yes normocephalic and Yes atraumatic Ears: hearing grossly normal bilaterally, external ears normal, TM's normal bilaterally, EAC's normal, mastoids normal and no periauricular adenopathy General nose exam: Normal external nose present Face and sinus: Yes sinuses nontender Mouth: Normal oral and palatal mucosa present Eyes: Other: + photophobia General: appearance normal, both eyes and all related structures Conjunctivae: conjunctivae normal Sclerae: sclerae normal Pupils: Equal, round and reactive pupils present EOM: EOMs intact bilaterally Neck: Neck: Yes normal visual inspection, Yes full ROM, Yes no lymphadenopathy and Yes no meningeal signs Resp: Effort & Inspection: normal respiratory effort Auscultation: clear to auscultation bilaterally Cardio: Jugular venous distension: no JVD Rate: regular rate Rhythm: regular rhythm Peripheral pulses: radial pulses present GI: Inspection: Yes normal to inspection Palpation (GI): Soft to palpation and nontender Back/Spine/Pelvis: Other: No midline spinous tenderness. No paraspinal muscle tenderness. No step-off deformity. Skin: General skin exam: no rashes or lesions noted Neuro: Other: Strength 5/5 intact throughout.? Sensation intact to light touch.? NV intact distally.? General: patient oriented x3, gait normal, moves all extremities and no meningeal signs Cranial nerves: Yes CN's II-XII intact bilaterally and Yes Equal, round and reactive pupils present Gait exam (Neuro): Normal gait present Coordination: wolypl-lu-gbuz test normal, xzgl-nd-nwbk test normal and Normal rapid alternating movements of the distal upper extremity present (Neuro) Extrem: General: Yes normal to inspection, Yes capillary refill normal and Yes no clubbing, cyanosis or edema Course Course Course Narrative: 1155- on re-evaluation patient states that her headache and neck pain have resolved with Fioricet and Valium. Her only complaint at present is that she has a little sleepy. She tells me that a family member will be driving her home today. She is ambulating with steady gait. I feel comfortable discharging patient home with Fioricet, Flexeril, and lidocaine patches. I will send her a referral to a neurologist for follow-up. Also advised her to follow-up with her PCP. Discussed strict return precautions. All questions answered at this time. patient agreeable disposition and stable for discharge. Medications Administered Discontinued Medications Generic Name Dose Route Start Last Admin Trade Name Freq PRN Reason Stop Dose Admin Acetaminophen/Butalbital/Caffeine 1 tab 12/17/22 10:27 12/17/22 10:56 Butalb/Acetamin/Caff 50/325/40 Tablet PO 12/17/22 10:28 1 tab ONCE ONE Administration Diazepam 5 mg 12/17/22 10:27 12/17/22 10:55 Diazepam 2 Mg Tablet PO 12/17/22 10:28 5 mg ONCE ONE Administration Medical Decision Making Medical Decision Making MDM Narrative: 37 year old female with pmhx significant for allergic rhinitis, atopic dermatitis, and asthma who presents to the ED for evaluation of MADRID x5 days. VSS, afebrile and normotensive. Patient is nontoxic appearing and in NAD. Patient is lying on a hospital bed with lights dimmed. There is no scalp tenderness. No palpable temporal artery. PERRLA with photophobia on funduscopic examination. There is no midline or paraspinal tenderness. No step-off deformity. RRR. Lungs CTA b/l. Exam is nonfocal. Cerebellum intact. Clinical concern for migraine, headache. No concern for hypertension. Unlikely temporal arteritis, meningitis, encephalitis, pseudotumor cerebri or trigeminal neural zenia. Presentation not consistent with CVA / TIA or cerebellar stroke. Differential Diagnosis Differential Diagnoses: The differential diagnosis associated with the presentation includes As above. Admission/Observation Not indicated. External Record Review External record reviewed: Inpatient record Tests considered The following testing was considered but not selected: I considered ordering CT head/ brain however patient's exam is nonfocal and her symptoms have improved with medications. Not warranted at this time. Prescription Management I considered prescription management with: Pain Medication and Other (muscle relaxer) Critical Care Time Critical Care Time Critical Care Time: No Discharge Plan Discharge Clinical Impression: Migraine Patient Disposition: Home, Self-Care Instructions: Migraine Headache (ED) Additional Instructions: Your migraine was relieved with medications. Fioricet has been sent to your pharmacy. Take this as needed for migraine headache. Flexeril has been sent to pharmacy. This is a muscle relaxer that will help with your neck pain. Take this as needed before bed to help with neck pain/ spasm. Do not drive or drink when taking this medication. Lidocaine patches have been sent to your pharmacy. You may place these on your neck is to help with pain Please follow-up with your primary care provider. You have also been provided with a referral to Neurology. You may call them to make an appointment. They will not call you. If your symptoms persist or worsen please return to the emergency department. In the case of emergency call 911. Naik migra?a se alivi? con medicamentos. Fioricet [place] sido enviado a naik farmacia. [place] esto seg?n sea necesario para la migra?a. Flexeril [place] sido enviado a farmacia. Tessa es un relajante muscular que le ayudar? con el dolor de gurjit. Roosevelt esto seg?n sea necesario antes de acostarse para ayudar con el dolor o espasmo del gurjit. No conduzca ni sandro mientras est? tomando tessa medicamento. Los parches de lidoca?na rdz sido enviados a naik farmacia. Puede colocarlos en naik gurjit para ayudar con el dolor. Bg un seguimiento con naik proveedor de atenci?n primaria. Tambi?n se le [place] proporcionado sugey derivaci?n a Neurolog?a. Puede llamarlos para programar sugey arleen. No te llamar?n. Si shaan s?ntomas persisten o empeoran, regrese al departamento de emergencias. En ankur de emergencia llame al 911. Prescriptions: New qmmfgvngdf-blfejbfogchni-fhdo [Fioricet] 50-300-40 mg capsule 1 cap PO Q8H PRN (Reason: pain (scale score 4-6)) Qty: 14 0RF lidocaine [Lidoderm] 5 % adhesive patch,medicated 1 patch topical DAILY Qty: 15 0RF Rx Instructions: leave on most painful area for up to 12 hrs cyclobenzaprine 5 mg tablet 5 mg PO BEDTIME PRN (Reason: muscle spasm) Qty: 7 0RF No Action ibuprofen 600 mg tablet 600 mg PO Q8H PRN (Reason: fever or pain) Qty: 30 0RF pnjbcnssik-rdrledhpjnisr-hycv [Fioricet] 50-300-40 mg capsule 1 cap PO Q6H PRN (Reason: headache) Qty: 10 0RF ibuprofen 600 mg tablet 600 mg PO Q8H PRN (Reason: pain) Qty: 20 0RF lidocaine 5 % adhesive patch,medicated 1 patch topical DAILY Qty: 15 0RF Rx Instructions: leave on most painful area for up to 12 hrs cyclobenzaprine 5 mg tablet 5 mg PO TID PRN (Reason: muscle spasm) Qty: 10 0RF albuterol sulfate [Ventolin HFA] 90 mcg/actuation HFA aerosol inhaler 2 puff inhalation Q6H PRN fluticasone propionate [Flonase Allergy Relief] 50 mcg/actuation spray,suspension 1 spray intranasal Q12H Rx Instructions: administer into each nostril montelukast 10 mg tablet 10 mg PO DAILY fluticasone propion-salmeterol [Advair Diskus] 250-50 mcg/dose blister with device 1 inh inhalation Q12H budesonide-formoterol [Symbicort] 160-4.5 mcg/actuation HFA aerosol inhaler 2 puff inhalation BID 30 Days Qty: 10.2 11RF Referrals: [facility] [Provider Group] Name,MD Gaston [Primary Care Provider] - Stand Alone Forms: Work/School Release Print Language: [place]orese
[2022-12-17] MEDS: diazePAM 2 MG TABLET 5 MG PO (10:55)
[2022-12-17] MEDS: Butalb/Acetamin/Caff 50/325/40 TABLET 1 TAB PO (10:56)
== END 2022-12-17 12:10 | disposition home or self-care (01) ==
PROVIDERS: Emergency Provider Student in an Organized Health Care Education/Training Program; PCP Internal Medicine Geriatric Medicine
DX: G43.909 Migraine, unspecified, not intractable, without status migrainosus (principal); F17.210 Nicotine dependence, cigarettes, uncomplicated; Z71.6 Tobacco abuse counseling; Z79.899 Other long term (current) drug therapy
CPT/HCPCS: 99283; 99284

== ENCOUNTER 2022-12-27 13:43 | Emergency (ER) | payer OTHER, MEDICAID, SELFPAY ==
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
[2022-12-27 14:03] VITALS: BP 112/58; PULSE 79; O2SAT 96
[2022-12-27 14:39] VITALS: BP 114/78; PULSE 68; RESP 16; TEMP 36.4; O2SAT 99; BMI 31.8
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
[2022-12-27] MEDS: Acetaminophen 325 MG TABLET 650 MG PO (17:17)
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
--- NOTE | 2022-12-27 19:05 | PC.NURSE ---
Pt left unit without instructions or DC, she has to take care of family member at home. Amb to exit.
== END 2022-12-27 18:40 | disposition left against medical advice (07) ==
PROVIDERS: Emergency Provider Emergency Medicine; PCP Internal Medicine Geriatric Medicine
DX: Z04.1 Encounter for examination and observation following transport accident (principal); M54.2 Cervicalgia
CPT/HCPCS: 72125; 99284

== ENCOUNTER → 2023-07-03 09:53 | Outpatient (REF) | payer MEDICAID, SELFPAY | LOC: HO.SL 09:53 | PROVIDERS: PCP Internal Medicine Geriatric Medicine; Visit Provider Internal Medicine Geriatric Medicine | DX: G47.33 Obstructive sleep apnea (adult) (pediatric) (principal); G47.30 Sleep apnea, unspecified; R06.83 Snoring | CPT/HCPCS: 95806 ==

== ENCOUNTER → 2023-07-03 19:00 | Outpatient (BNV) | payer MEDICAID, SELFPAY | PROVIDERS: PCP Internal Medicine Geriatric Medicine; Visit Provider Internal Medicine | DX: G47.33 Obstructive sleep apnea (adult) (pediatric) (principal) | CPT/HCPCS: 95806 ==

== ENCOUNTER 2024-03-30 10:37 | Outpatient (REF) | payer MEDICAID, SELFPAY ==
[2024-03-30 11:13] LABS: Hematocrit 35.5 % (37.0-47.0); Hemoglobin 11.7 g/dl (12.0-16.0); Mean Corpuscular Hemoglobin 27.6 pg (27.0-33.0); Mean Corpuscular Volume 83.7 fL (80.0-98.0); Mean Platelet Volume 11.2 fL (9.4-12.3); Platelet Count 214 X10*3/uL (160-400); Red Blood Count 4.24 X10*6/uL (4.20-5.50); Red Cell Distribution Width 14.8 % (11.0-16.0); White Blood Count 4.6 X10*3/uL (4.8-10.8)
--- OUTSIDE RECORDS SUMMARY | 2024-03-30 11:35 | XMS_ITS | Encounter Summary ---
Author Organization [employer] Address [address] [place] [address] 7t [place] [address] Care Team Providers Care Restaurant Supervisor Name Role Phone Name, Gaston RUSH Primary Care Provider [phone] Encounter Details Date Type Department Care Team ([facility] st Contact Info) Description 03/30/2024 Telephone [facility] [address] [place] [address] Kristi Landry MD [address] [place] [address] Social History Tobacco Use Types Packs/Day Years Used Date Smoking Tobacco: Some Days Cigarettes Smokeless Tobacco: Never Alcohol Use Standard Drinks/Week Comments Yes 0 (1 standard drink = 0.6 oz pur e alcohol) occassional Depression Answer Date Recorded Patient Health Questionnaire-9 Score 0 05/24/2023 Patient Health Questionnaire-9 Score 0 05/24/2023 Last PHQ-9: Questionnaire Data Not on file 0 05/24/2023 Housing Stability Answer Date Recorded What is your housing situation today? I have vladimir lopez 12/05/[address] you li ve. Do you have problems with any of the following? None of the above 12/05/2022 Food Insecurity Answer Date Recorded Within the past 12 months, y ou worried that your food would run out before you got money to buy more: Never True 12/05/2022 Within the past 12 months,th e food you bought just didn't last and you didn't have enough money to get more: Never True Transportation Answer Date Recorded In the past 12 months, has l ack of transportation kept you from medical appts, meetings, work or from getting things needed for daily living? No 12/05/2022 Utilities Answer Date Recorded In the past 12 months, has t he electric, gas, oil or water company threatened to shut off services in your home? No 12/05/2022 Depression Answer Date Recorded Patient Health Questionnaire-2 Score 0 05/24/2023 Comments Unknown Sex and Gender Information Value Date Recorded Sex Assigned at Female 12/18/2021 10:14 AM EDT Legal Sex Female 10:14 AM EDT Gender Identity Female 12/18/2021 10:14 AM EDT Sexual Orientation Choose not to disclose 2021 10:14 AM EDT documented as of this encounter Miscellaneous Notes * Telephone Encounter - Kristi Landry MD - 03/30/2024 10:09 AM EST Pedro Manuel, Can you please make a pop up for this pt and her twin sister that you need to use the social security to identify pt. Names are one letter different and same . Thank you, Kristi documented in this encounter Plan of Treatment Not on file documented as of this encounter Visit Diagnoses Not on filedocumented in this encounter Additional Health Concerns Assessment Noted Time PHQ-9 Depression Total Score: 0 05/24/19 24 10:40 AM EDT documented as of this encounter Care Teams Restaurant Supervisor Relationship Specialty Start Date End Date Name, MD Gaston [address] [place] [address] PCP - General Family Medicine 04/18/15 documented as of this encounter
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
--- OUTSIDE RECORDS SUMMARY | 2024-03-30 11:35 | XMS_ITS | Encounter Summary ---
Author Organization [employer] Address [address] [place] [address] 7t [place] [address] Care Team Providers Care Bakery Products Checker Name Role Phone Name, Gaston RSUH Primary Care Provider [phone] Reason for Referral * Imaging (Routine) - Pending Review Specialty Diagnoses / Procedures Referred By Lucho phan Referred To Contact Radiology Diagnoses Axillary mass, right Procedures BI Mammogram Diagnostic Tomosynthesis Right Kristi Landry MD [address] [place] [phone] Phone: tel: fax: [address] Phone: tel: fax: Referral ID Status Reason Start Date Expiration Date V isits Requested Visits Authorized [id number] Pending Review 03/30/2024 03/30/2025 1 1 Reason for Visit * Reason Comments bump under right arm Bump right arm Encounter Details Date Type Department Care Team (Late st Contact Info) Description 03/30/2024 11:15 AM EST Office Visit [facility] MEDICINE [address] [place] [address] [phone] Kristi Landry MD [address] [place] [address] [phone] Axillary mass, right (Primary Dx) Social History Tobacco Use Types Packs/Day Years [...] AM EDT documented as of this encounter Last Filed Vital Signs Vital Sign Reading Time Taken Comments Blood Pressure 124/88 03/30/2024 9:33 AM EST Pulse 89 03/30/2024 9:33 AM EST Temperature 37.1 ??C (98.7 ??F) 03/30/2024 9:33 AM ES T Respiratory Rate 20 03/30/2024 9:33 AM EST Oxygen Saturation 98% 03/30/2024 9:33 AM EST Inhaled Oxygen Concentration - - Weight 75.1 kg (165 lb 9.6 oz) 03/30/2024 9:33 A M EST Height - - Body Mass Index 32.34 05/24/2023 10:36 AM EDT documented in this encounter Patient Instructions * Patient Instructions* Kristi Landry MD - 03/30/2024 11:15 AM EST To schedule your test at [facility] please call [phone]. documented in this encounter Plan of Treatment Scheduled Orders Name Type Priority Associated Diagnoses Orde r Schedule BI Mammogram Diagnostic Tomosynthesis Right Imaging Routine Axillary mass, right Expected: 03/30/2024, Expires: 05/28/2025 documented as of this encounter Procedures Procedure Name Priority Date/Time Associated Diagnosis Comments CBC Routine 03/30/2024 10:39 AM EST Axillary mass, right documented in this encounter Results * (ABNORMAL) CBC (03/30/2024 10:39 AM EST) White Blood Count 4.6(L) 4.8 - 10.8 X10*3/uL [facility] Red Blood Count 4.24 4.20 - 5.50 X10*6/uL [facility] Hemoglobin 11.7(L) 12.0 - 16.0 g/dl [facility] Hematocrit 35.5(L) 37.0 - 47.0 % [facility] Mean Corpuscular Volume 83.7 80.0 - 98.0 fL [facility] Mean Corpuscular Hemoglobin 27.6 27.0 - 33.0 pg [facility] Mean Corpuscular HGB Conc 33.0 31.0 - 35.0 g/dl [facility] Red Cell Distribution Width 14.8 11.0 - 16.0 % [facility] Platelet Count 214 160 - 400 X10*3/uL [facility] Mean Platelet Volume 11.2 9.4 - 12.3 fL [facility] NRBC Pct Auto 0.0 0.0 - 0.2 /100WBC [facility] NRBC Abs Auto 0.000 0.0 - 0.012 X10*3/uL [facility] Blood Venous blood specimen / Unknown 03/30/2024 10:39 AM EST 03/30/2024 11:01 AM EST Kristi Landry MD LAB BLOOD ORDERABLES Final Result [facility] [address] [place] [address] [phone] documented in this encounter Visit Diagnoses Diagnosis Axillary mass, right- Primary documented in this encounter Additional Health Concerns Assessment Noted Time PHQ-9 Depression Total Score: 0 05/24/19 24 10:40 AM EDT documented as of this encounter Care Teams Bakery Products Checker Relationship Specialty Start Date End Date Name, MD Gaston [address] [place] [address] PCP - General Family Medicine 04/18/15 documented as of this encounter
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
== END 2024-03-30 10:38 | disposition home or self-care (01) ==
LOC: HO.HHCL 10:37
PROVIDERS: Visit Provider Family Medicine
DX: R22.31 Localized swelling, mass and lump, right upper limb (principal)
CPT/HCPCS: 36415; 85027

== ENCOUNTER 2024-05-29 08:54 | Outpatient (REF) | payer MEDICAID, SELFPAY ==
--- NOTE | ~2024-05-29 | US_ITS ---
EXAMINATION: MM DIAGNOSTIC DIGITAL BREAST TOMOSYNTHESIS, BILATERAL Bilateral Limited ultrasound. CLINICAL INFORMATION: Palpable right axillary mass. Baseline mammogram. History of bilateral reduction mammoplasty. COMPARISON: Mammography: Comparison is made with relevant prior exams. TECHNIQUE: Digital breast mammography with tomosynthesis is performed in both the craniocaudal and mediolateral oblique views along with computer-aided detection (CAD). FINDINGS: There are scattered areas of fibroglandular density (ACR BI-RADS breast composition Category b). Bilateral reduction mammoplasty. Left: There is a 3 cm oval mass in the central outer left breast posterior depth. No suspicious calcifications or other abnormal findings. Targeted color Doppler ultrasound scanning in the left breast laterally from 1-5 o'clock demonstrates a hypoechoic oval circumscribed solid mass at 4:00 14 cm from nipple measuring 28 x 30 x 12 mm which correlates with the mass on mammography. Right: There is a prominent axillary lymph node in the area the patient's palpable lump. There is an 8 mm oval mass in the upper central breast anterior depth. No suspicious calcifications or other abnormal findings. Targeted color Doppler ultrasound in the right axilla demonstrates 2 enlarged right axillary lymph nodes with thickened cortices measuring up to 6 mm. Otherwise scanning at 12:00 recent meters from nipple demonstrates a group of adjacent minimally complicated cysts with intervening breast tissue measuring 7 x 3 x 3 mm. Results are provided to the patient at time of visit by the technologist. US/US breast BI limited mamm only IMPRESSION: Left: Solid mass measuring up to 30 mm. Recommend ultrasound guided core needle biopsy at this time for confirmation. The findings and recommendations were discussed with the patient the procedure will be scheduled. Right: 1. Enlarged right axillary lymph node correlate with the patient's palpable lump. Recommend ultrasound-guided core needle biopsy for confirmation. 2. Probable adjacent minimally complicated cyst at 12:00 3 cm from nipple. Recommend 6 month follow-up ultrasound for further evaluation of stability. ASSESSMENT: BI-RADS BI-RADS 4 - Suspicious finding RECOMMENDATION: Biopsy recommended This patient's information was entered into a reminder system with a target due date for their next mammogram. Electronically signed by: Elvia Chavira DO 05/29/2024 03:19 PM EDT
== END 2024-05-29 08:55 | disposition home or self-care (01) ==
LOC: HO.MAMMO 08:54
PROVIDERS: PCP Internal Medicine Geriatric Medicine; Visit Provider Internal Medicine Geriatric Medicine
DX: R22.31 Localized swelling, mass and lump, right upper limb (principal)
CPT/HCPCS: 76642; 77062; 77066

== ENCOUNTER → 2024-05-29 09:00 | Outpatient (BNV) | payer MEDICAID, SELFPAY | PROVIDERS: PCP Internal Medicine Geriatric Medicine; Visit Provider Internal Medicine | DX: N63.31 Unspecified lump in axillary tail of the right breast (principal) | CPT/HCPCS: 76642; 77062; 77066 ==

== ENCOUNTER 2024-06-10 13:24 | Outpatient (AMB) | payer MEDICAID, SELFPAY ==
--- NOTE | 2024-06-10 13:26 | MHC.OFFVIS ---
Vital Signs 06/10/24 13:29 Height 5 ft Weight 165 lb BMI 32.2 BP 126/75 Blood Pressure Location Rt brachial Position Sitting Pulse 83 Intake Visit Reasons: L)BR USBX 4:00 MASS/R)USBX NODE Intake Note: Patient referred by pcp Gaston Preston PA-C for Lt br USbx and Rt axilla lymph node bx. Patient c/o: use to feel lump on Rt axilla. Hx of breast reduction surgery. Reports no personal or family hx of breast CA. Liquid Center Assembler Required: No Accompanied by: Self / Same As Patient Allergies shellfish derived [SHELLFISH DERIVED] Allergy (Severe, Verified 06/10/24 13:31) SWELLING/HIVES Medication List - Last Reconciled 06/10/24 by Louis Gallegos MD albuterol sulfate 90 mcg/actuation (Ventolin HFA) 2 puffs inhalation Q6H PRN budesonide-formoterol 160-4.5 mcg/actuation (Symbicort) 2 puffs inhalation BID 30 days lisvvtouxu-aozkytmxoibpq-wuqy 50-300-40 mg (Fioricet) 1 cap PO Q6H PRN redxdzearb-uhilftlzhinba-zzqk 50-300-40 mg (Fioricet) 1 cap PO Q8H PRN fluticasone propion-salmeterol 250-50 mcg/dose (Advair Diskus) 1 inh inhalation Q12H fluticasone propionate 50 mcg/actuation (Flonase Allergy Relief) 1 spray intranasal Q12H ibuprofen 600 mg PO Q8H PRN ibuprofen 600 mg PO Q8H PRN lidocaine 5% 1 patch topical DAILY lidocaine 5% (Lidoderm) 1 patch topical DAILY montelukast 10 mg PO DAILY HPI HPI L)BR USBX 4:00 MASS/R)USBX NODE: Details: [age] year old female referred for a left breast mass and right axillary mass. She says she actually started to feel a small mass in the right axilla about 2 months ago. She therefore was sent for mammogram and ultrasound by her primary care physician. Her imaging studies showed hypoechoic oval circumscribed solid mass at the 4 o'clock position on the left breast 28 x 30 x 12 mm in size. On the right axilla was note of a prominent axillary lymph node. Biopsies these 2 areas were recommended by the radiologist. She says she no longer feels the lump in the right axilla. She says she had never felt a lump on the left breast. Her menarche was at the age of 13. Her 1st was at the age of 17. She had 3 pregnancies. She says lesser periods. She denies any family history of breast cancer. She says her mother had some form of lymphoma. [facility] Medical History Lymph node enlargement Left breast mass Hx of LEEP (loop electrosurgical excision procedure) of cervix complicating Chest pain Atopic dermatitis Chronic allergic rhinitis Asthma Surgical History Hx of bilateral breast reduction surgery Hx of tubal ligation Social History Unable to assess alcohol history related to: Unknown Patient Tobacco Use Status: Current someday Tobacco user Tobacco use type: Cigarette Cigarettes Per Day: 2 Female Reproductive History Menstrual Age of Menarche: 13 Review of Systems Const Denies chills and Denies fever(s) Card Denies chest pain, Denies dyspnea and Denies dyspnea on exertion Resp Denies cough, Denies dyspnea and Denies dyspnea on exertion GI Denies hematochezia and Denies change in bowel habits Denies hematuria Musc Denies back pain and Denies limited range of motion Neuro Denies focal weakness and Denies convulsions Psych Denies depression and Denies mood swings Physical Exam Vital Signs: Last Vital Signs Pulse 83 06/10/24 13:29 BP 126/75 06/10/24 13:29 BMI result Body Mass Index 32.2 Const General: comfortable and no acute distress Orientation/consciousness: patient oriented x3 Neck Neck: Yes no lymphadenopathy Chest Other: I am unable to feel any mass in the left breast or the right breast ; I did not appreciate any enlarged lymph node in the right axilla Resp Auscultation: clear to auscultation bilaterally Cardio Rhythm: regular rhythm GI Palpation (GI): Soft to palpation, nontender and no guarding Neuro General: patient oriented x3 Assessment & Plan Assessment & Plan (1) Left breast mass: Code(s): N63.20 - Unspecified lump in the left breast, unspecified quadrant Category: Medical Plan: Her mammogram shows a left breast mass as described above as well as a right axillary lymph node that was enlarged. She was recommended to undergo an ultrasound biopsy for these 2 masses. I will see her again in the office next week to discuss the path report. (2) Lymph node enlargement: Code(s): R59.9 - Enlarged lymph nodes, unspecified Category: Medical Plan: She no longer feels this mass. I currently do not appreciate this mass either. She was scheduled for a biopsy of this as well. Orders: Orders US breast ndl core biopsy LT Today N63.20 - Unspecified lump in the left breast, unspecified quadrant US biopsy lymph node Today R59.9 - Enlarged lymph nodes, unspecified Coding Level of Care Code New Pt Level 3 (43836) Diagnoses Left breast mass N63.20 Lymph node enlargement R59.9
[2024-06-10 13:29] VITALS: BP 126/75; PULSE 83; BMI 32.2
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
--- OUTSIDE RECORDS SUMMARY | 2024-06-10 15:49 | XMS_ITS | Clinical Summary ---
Author Organization [facility] Address [address] [place] [address] 7t [place] [address] Care Team Providers Care Cath Lab Name Role Phone Name, Gaston RUSH Primary Care Provider [phone] Allergies Active Allergy Reactions Criticality Noted Date Comments Shellfish-Derived Products 3 Medications EPINEPHrine (Epipen) 0.3 MG/0.3ML injection syringe Inject 0.3 mL (0.3 mg) as directed 1 (one) time if needed for anaphylaxis for up to 1 dose. Inject into upper leg. Call 911 after use. 1 each 05/12/19 23 Active Diclofenac Sodium 1 % gelIndications :Neck sprain, initial encounter APPLY 1 INCH TOPICALLY IF NEEDED IN THE MORNING AND AT BEDTIME (PAIN) 100 g 04/04/19 24 Active Additional Information Patient not taking.Reported on 05/24/2023 Ventolin HFA 108 (90 Base) MCG/ACT inhaler TAKE 2 PUFFS BY MOUTH EVERY 4 TO 6 HOURS NEEDED 18 g 05/24/19 Active fexofenadine (Kanika) 180 MG tablet Take 1 tablet (180 mg) by mouth in the morning. 30 tablet 05/24/19 24 Active montelukast (Singulair) 10 MG tablet Take 1 tablet (10 mg) by mouth in the evening. 30 tablet 05/24/19 24 Active fluticasone furoate (Arnuity Ellipta) 200 MCG/ACT inhaler Inhale 1 puff in the morning. Rinse mouth with water after use to reduce aftertaste and incidence of candidiasis. Do not swallow. 1 each 05/24/19 24 Active Varenicline Tartrate, Starter, (Chantix Starting Month ) 0.5 MG X 11 & 1 MG X 42 tablet therapy pack Take 0.5 mg by mouth Once daily for 3 days, THEN 0.5 mg 2 times daily for 4 days, THEN 1 mg 2 times daily for 21 days. 1 each 05/24/19 24 Active amitriptyline (Elavil) 10 MG tablet Take 1 tablet (10 mg) by mouth at bedtime. 30 tablet 2 05/24/19 24 Active SUMAtriptan (Imitrex) 50 MG tablet TAKE 1 TABLET 1 TIME IF NEEDED FOR MIGRAINE. MAY REPEAT DOSE ONCE IN 2 HOURS IF NO RELIEF. DO NOT EXCEED 2 DOSES IN 24 HOURS. 9 tablet 2 12/03/19 24 Active fluticasone (Flonase) 50 MCG/ACT nasal spray ADMINISTER 1 SPRAY INTO EACH NOSTRIL IN THE MORNING FOR 14 DAYS. *NC* 16 mL 2 06/02/19 25 Active fluticasone (Flonase) 50 MCG/ACT nasal spray Administer 1 spray into each nostril in the morning for 14 days. 16 g 05/24/19 24 025 Discontinued Active Problems Problem Noted Date Diagnosed Date Axillary mass, right 03/30/2024 Assessment & Plan (03/30/2024 12:33 PM EST): Exam 03/30/24 likely normal lymph node. Will check CBC given family his of lymphoma and mammogram diagnostic on right. Advise follow up sooner for pain, swelling or changes. She was given the number for scheduling if she does not hear about the mammogram appointment in the next few days. Sore throat 05/07/2023 Assessment & Plan (05/07/2023 [...] scan was normal Most likely ligament injuries Implementation Services Analyst to apply heat to affected area Flexeril [...] hours a day. 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 and she will let me know if [...] Encounters Date Type Department Care Team Description 05/30/2024 Refill [facility] [address] [place] [phone] Sofia Calix MD 05/29/2024 Orders Only [facility] [address] [place] [phone] Name, MD Gaston 05/12/2024 Telephone [facility] [address] [place] [phone] Kristi Landry MD Imaging Orders 05/01/2024 Population Health Risk Score [facility] Department [address] [phone] Provider, Population Health Generic 04/23/2024 Telephone [facility] [address] [place] [phone] Kristi Landry MD 04/14/2024 Orders Only [address] [address] Name, MD Gaston Axillary mass, right (Primary Dx) 04/09/2024 Orders Only [address] [address] NameGaston MD Axillary mass, right (Primary Dx) 04/08/[address] [address] Rowdy Graham MA May recalls 03/30/2024 11:15 AM EST Office Visit [address] [phone] Kristi Landry MD Axillary mass, right (Primary Dx) 03/30/[address] [address] Kristi Landry MD from Last 3 Months Immunizations Name Administration Dates Next Due DTP 06/15/1990, 9,12/17/1985,10/09,1984 Hep B, Adolescent or Pediatric 06/24/1997,1996,07/15/1996 Hib ([facility]) 08/15/1988 IPV 01/20/1992,03/17/1986 Influenza injectable quadriv alent IIV4 with preservative 12/07/2015 Influenza injectable quadriv alent preservative free 12/02/2018 Influenza, IIV3, injectable 12/22/1998 Influenza, Split (incl. anitha fied surface antigen) 12/25/2012,11/07/2011 MMR 11/16/1995,12/17/1985 OPV, Trivalent 01/03/1986,1984,1984 Pneumococcal Polysaccharide PPSV23 10/27/2014 TD (adult), [...] 05/24/2023 10:36 AM EDT Plan of Treatment Upcoming Encounters Date Type Department Care Team (Late st Contact Info) Description 07/01/2024 10:00 AM EDT Office Visit [facility] [address] [place] [address] Name, MD Gaston [address] [place] [address] Health Maintenance Due Date Last Done Comments Alcohol/Substance Use Screening 1996 Family Planning (PISQ) 06/02/1999 Pneumococcal Vaccine: Pediatrics (0 to 5 Years) and At-Risk Patients (6 to 49) Years) (2 of 2 - PCV) 10/28/2015 10/27/2014 COVID-19 Vaccine ( season) 2023 04/13/2021, 04/13/2020, 03/24/2020 Influenza Vaccine (#1) 2023 9, 12/07/2015, 12/25/2012, Additional history exists SDOH Screening 05/16/2024 05/17/2023 Depression Screening 05/23/2024 05/24/2023, 05/24/19 Diagnostic Breast Imaging 06/11/2024 05/29/2024, 12/2024 Tobacco Screening 03/30/2025 03/30/2024 Lipid Panel 06/15/2025 [...] Procedure Name Priority Date/Time Associated Diagnosis Comments BI US BREAST LIMITED BILATERAL Routine 05/29/2024 9:30 AM EDT BI MAMMOGRAM DIAGNOSTIC TOMOSYNTHESIS BILATERAL Routine 05/29/2024 9:00 AM EDT Axillary mass, right CBC Routine 03/30/2024 10:39 AM EST Axillary mass, right HM PAP/HPV Routine 11/23/2022 ZZZ HISTORICAL HEPATITIS C AB W/REFL TO HCV RNA, QN, PCR Routine 03/28/2021 8:10 AM EST HIV 1/2 ANTIGEN/ANTIBODY, FOURTH GENERATION W/RFL Routine 03/28/2021 8:10 AM EST LIPID PANEL, STANDARD Routine 06/15/2020 8:32 AM EDT from Last 3 Months or Most Recently Relevant to Health Maintenance Results * BI US Breast Limited Bilateral (05/29/2024 9:30 AM EDT) Anatomical Region Laterality Modality Breast Bilateral Ultrasound 05/29/2024 9:30 AM EDT Narrative 05/29/2024 3:22 PM EDT ? [facility] ? [address] ?[place] [address] ? Ultrasound Report ? Signed ? Patient: Montero Vince,Vilbasiaie ?MR ?? #: [id number] ? : 1985 ?Acct:[id number] ? Age/Sex: 38 / F ?ADM Date: 05/29/24 ? Loc: HO.MAMMO ? Attending Dr: Gaston Preston MD ? Ordering Physician: Gaston Preston MD ?? Date of Service: 05/29/24 ?? Procedure(s): US breast BI limited mamm only ?? Accession Number(s): [id number] ? cc: Gaston Preston MD ? EXAMINATION: ?? MM DIAGNOSTIC DIGITAL BREAST TOMOSYNTHESIS, BILATERAL ?? Bilateral Limited ultrasound. ? CLINICAL INFORMATION: ? Palpable right axillary mass. ?? Baseline mammogram. History of bilateral reduction mammoplasty. ? COMPARISON: ?? Mammography: Comparison is made with relevant prior exams. ? TECHNIQUE: ?? Digital breast mammography with tomosynthesis is performed in both the ?? craniocaudal and mediolateral oblique views along with computer-aided ?? detection (CAD). ? FINDINGS: ?? There are scattered areas of fibroglandular density (ACR BI-RADS breast ?? composition Category b). ?? Bilateral reduction mammoplasty. ?? Left: ?? There is a 3 cm oval mass in the central outer left breast posterior ?? depth. ?? No suspicious calcifications or other abnormal findings. ? Targeted color Doppler ultrasound scanning in the left breast laterally ?? from 1-5 o'clock demonstrates a hypoechoic oval circumscribed solid ?? mass at 4:00 14 cm from nipple measuring 28 x 30 x 12 mm which ?? correlates with the mass on mammography. ? Right: There is a prominent axillary lymph node in the area the ?? patient's palpable lump. ?? There is an 8 mm oval mass in the upper central breast anterior depth. ?? No suspicious calcifications or other abnormal findings. ? Targeted color Doppler ultrasound in the right axilla demonstrates 2 ?? enlarged right axillary lymph nodes with thickened cortices measuring ?? up to 6 mm. Otherwise scanning at 12:00 recent meters from nipple ?? demonstrates a group of adjacent minimally complicated cysts with ?? intervening breast tissue measuring 7 x 3 x 3 mm. ? Results are provided to the patient at time of visit by the ?? technologist. ? US/US breast BI limited mamm only ?? IMPRESSION: ?? Left: ?? Solid mass measuring up to 30 mm. Recommend ultrasound guided core ?? needle biopsy at this time for confirmation. The findings and ?? recommendations were discussed with the patient the procedure will be ?? scheduled. ? Right: ?? 1. Enlarged right axillary lymph node correlate with the patient's ?? palpable lump. Recommend ultrasound-guided core needle biopsy for ?? confirmation. ? 2. Probable adjacent minimally complicated cyst at 12:00 3 cm from ?? nipple. Recommend 6 month follow-up ultrasound for further evaluation ?? of stability. ? ASSESSMENT: ? BI-RADS BI-RADS 4 - Suspicious finding ? RECOMMENDATION: ?? Biopsy recommended ? This patient's information was entered into a reminder system with a ?? target due date for their next mammogram. ? Electronically signed by: ??Elvia Chavira DO ??05/29/2024 03:19 PM EDT ? Dictated By: ?Elvia Chavira DO ? Signed By: ?<Electronically signed by Elvia Chavira, DO in OV> ? 05/29/24 1519 ? DD/ 0930 ? TD/TT: 05/29/24 1028 ? Chamfering Machine Operator: ? Procedure Note Tamra, Reynaldo - 05/29/2024 [place] [facility] [address] [place] [address] Ultrasound Report Signed Patient: Raúl Resendez #: [id number] : 1985Acct:[id number] Age/Sex: 38 / FADM Date: 05/29/24 Loc: HO.MAMMO Attending Dr: Gaston Preston MD Ordering Physician: Gaston Preston MD Date of Service: 05/29/24 Procedure(s): US breast BI limited mamm only Accession Number(s): [id number] cc: Gaston Preston MD EXAMINATION: MM DIAGNOSTIC DIGITAL BREAST TOMOSYNTHESIS, BILATERAL Bilateral Limited ultrasound. CLINICAL INFORMATION: Palpable right axillary mass. Baseline mammogram. History of bilateral reduction mammoplasty. COMPARISON: Mammography: Comparison is made with relevant prior exams. TECHNIQUE: Digital breast mammography with tomosynthesis is performed in both the craniocaudal and mediolateral oblique views along with computer-aided detection (CAD). FINDINGS: There are scattered areas of fibroglandular density (ACR BI-RADS breast composition Category b). Bilateral reduction mammoplasty. Left: There is a 3 cm oval mass in the central outer left breast posterior depth. No suspicious calcifications or other abnormal findings. Targeted color Doppler ultrasound scanning in the left breast laterally from 1-5 o'clock demonstrates a hypoechoic oval circumscribed solid mass at 4:00 14 cm from nipple measuring 28 x 30 x 12 mm which correlates with the mass on mammography. Right: There is a prominent axillary lymph node in the area the patient's palpable lump. There is an 8 mm oval mass in the upper central breast anterior depth. No suspicious calcifications or other abnormal findings. Targeted color Doppler ultrasound in the right axilla demonstrates 2 enlarged right axillary lymph nodes with thickened cortices measuring up to 6 mm. Otherwise scanning at 12:00 recent meters from nipple demonstrates a group of adjacent minimally complicated cysts with intervening breast tissue measuring 7 x 3 x 3 mm. Results are provided to the patient at time of visit by the technologist. US/US breast BI limited mamm only IMPRESSION: Left: Solid mass measuring up to 30 mm. Recommend ultrasound guided core needle biopsy at this time for confirmation. The findings and recommendations were discussed with the patient the procedure will be scheduled. Right: 1. Enlarged right axillary lymph node correlate with the patient's palpable lump. Recommend ultrasound-guided core needle biopsy for confirmation. 2. Probable adjacent minimally complicated cyst at 12:00 3 cm from nipple. Recommend 6 month follow-up ultrasound for further evaluation of stability. ASSESSMENT: BI-RADS BI-RADS 4 - Suspicious finding RECOMMENDATION: Biopsy recommended This patient's information was entered into a reminder system with a target due date for their next mammogram. Electronically signed by: Elvia Chavira DO 05/29/2024 03:19 PM EDT Dictated By: Elvia Chavira DO Signed By: <Electronically signed by Elvia Chavira DO in OV> 05/29/24 1519 DD/ 0930 TD/TT: 05/29/24 1028 Chamfering Machine Operator: us Gaston Name MD IMG US PROCEDURES Final Result * BI Mammogram Diagnostic Tomosynthesis Bilateral (05/29/2024 9:00 AM EDT) Anatomical Region Laterality Modality Breast Bilateral Mammography 05/29/2024 9:00 AM EDT Narrative 05/29/2024 3:22 PM EDT ? [facility] ? [address] ?[place], [place] [address] ?[phone] ? Mammography Report ? Signed ? Patient: Raúl Resendez ?MR ?? #: [id number] ? : 1985 ?Acct:[id number] ? Age/Sex: 38 / F ?ADM Date: 05/29/24 ? Loc: HO.MAMMO ? Attending Dr: Gaston Name MD ? Ordering Physician: Name,Gaston MD ?Results: 4Suspiciou ?? s Finding ? Date of Service: 05/29/24 ?Follow Up: Biopsy Recommend ?? ed ? Procedure(s): MM tomosynthesis diagnostic BI ?? Accession Number(s): [id number] ? cc: Name,Gaston RUSH ? EXAMINATION: ?? MM DIAGNOSTIC DIGITAL BREAST TOMOSYNTHESIS, BILATERAL ?? Bilateral Limited ultrasound. ? CLINICAL INFORMATION: ? Palpable right axillary mass. ?? Baseline mammogram. History of bilateral reduction mammoplasty. ? COMPARISON: ?? Mammography: Comparison is made with relevant prior exams. ? TECHNIQUE: ?? Digital breast mammography with tomosynthesis is performed in both the ?? craniocaudal and mediolateral oblique views along with computer-aided ?? detection (CAD). ? FINDINGS: ?? There are scattered areas of fibroglandular density (ACR BI-RADS breast ?? composition Category b). ?? Bilateral reduction mammoplasty. ?? Left: ?? There is a 3 cm oval mass in the central outer left breast posterior ?? depth. ?? No suspicious calcifications or other abnormal findings. ? Targeted color Doppler ultrasound scanning in the left breast laterally ?? from 1-5 o'clock demonstrates a hypoechoic oval circumscribed solid ?? mass at 4:00 14 cm from nipple measuring 28 x 30 x 12 mm which ?? correlates with the mass on mammography. ? Right: There is a prominent axillary lymph node in the area the ?? patient's palpable lump. ?? There is an 8 mm oval mass in the upper central breast anterior depth. ?? No suspicious calcifications or other abnormal findings. ? Targeted color Doppler ultrasound in the right axilla demonstrates 2 ?? enlarged right axillary lymph nodes with thickened cortices measuring ?? up to 6 mm. Otherwise scanning at 12:00 recent meters from nipple ?? demonstrates a group of adjacent minimally complicated cysts with ?? intervening breast tissue measuring 7 x 3 x 3 mm. ? Results are provided to the patient at time of visit by the ?? technologist. ? MM/MM tomosynthesis diagnostic BI ?? IMPRESSION: ?? Left: ?? Solid mass measuring up to 30 mm. Recommend ultrasound guided core ?? needle biopsy at this time for confirmation. The findings and ?? recommendations were discussed with the patient the procedure will be ?? scheduled. ? Right: ?? 1. Enlarged right axillary lymph node correlate with the patient's ?? palpable lump. Recommend ultrasound-guided core needle biopsy for ?? confirmation. ? 2. Probable adjacent minimally complicated cyst at 12:00 3 cm from ?? nipple. Recommend 6 month follow-up ultrasound for further evaluation ?? of stability. ? ASSESSMENT: ? BI-RADS BI-RADS 4 - Suspicious finding ? RECOMMENDATION: ?? Biopsy recommended ? This patient's information was entered into a reminder system with a ?? target due date for their next mammogram. ? Electronically signed by: ??Elvia Chavira DO ??05/29/2024 03:19 PM EDT ? Dictated By: ?Elvia Chavira DO ? Signed By: ?<Electronically signed by Elvia Chavira, DO in OV> ? 05/29/24 1519 ? DD/ 0900 ? TD/TT: 05/29/24 0915 ? Chamfering Machine Operator: ? Procedure Note Donotuseinterpreter, Image - 05/29/2024 [facility] [address] [place] [address] Mammography Report Signed Patient: May Resendez #: [id number] : 1985Acct:[id number] Age/Sex: 38 / FADM Date: 05/29/24 Loc: HO.MAMMO Attending Dr: Gaston Preston MD Ordering Physician: Gaston Preston MDResults: 4Suspiciou s Finding Date of Service: 05/29/24Follow Up: Biopsy Recommend ed Procedure(s): MM tomosynthesis diagnostic BI Accession Number(s): [id number] cc: Gaston Preston MD EXAMINATION: MM DIAGNOSTIC DIGITAL BREAST TOMOSYNTHESIS, BILATERAL Bilateral Limited ultrasound. CLINICAL INFORMATION: Palpable right axillary mass. Baseline mammogram. History of bilateral reduction mammoplasty. COMPARISON: Mammography: Comparison is made with relevant prior exams. TECHNIQUE: Digital breast mammography with tomosynthesis is performed in both the craniocaudal and mediolateral oblique views along with computer-aided detection (CAD). FINDINGS: There are scattered areas of fibroglandular density (ACR BI-RADS breast composition Category b). Bilateral reduction mammoplasty. Left: There is a 3 cm oval mass in the central outer left breast posterior depth. No suspicious calcifications or other abnormal findings. Targeted color Doppler ultrasound scanning in the left breast laterally from 1-5 o'clock demonstrates a hypoechoic oval circumscribed solid mass at 4:00 14 cm from nipple measuring 28 x 30 x 12 mm which correlates with the mass on mammography. Right: There is a prominent axillary lymph node in the area the patient's palpable lump. There is an 8 mm oval mass in the upper central breast anterior depth. No suspicious calcifications or other abnormal findings. Targeted color Doppler ultrasound in the right axilla demonstrates 2 enlarged right axillary lymph nodes with thickened cortices measuring up to 6 mm. Otherwise scanning at 12:00 recent meters from nipple demonstrates a group of adjacent minimally complicated cysts with intervening breast tissue measuring 7 x 3 x 3 mm. Results are provided to the patient at time of visit by the technologist. MM/MM tomosynthesis diagnostic BI IMPRESSION: Left: Solid mass measuring up to 30 mm. Recommend ultrasound guided core needle biopsy at this time for confirmation. The findings and recommendations were discussed with the patient the procedure will be scheduled. Right: 1. Enlarged right axillary lymph node correlate with the patient's palpable lump. Recommend ultrasound-guided core needle biopsy for confirmation. 2. Probable adjacent minimally complicated cyst at 12:00 3 cm from nipple. Recommend 6 month follow-up ultrasound for further evaluation of stability. ASSESSMENT: BI-RADS BI-RADS 4 - Suspicious finding RECOMMENDATION: Biopsy recommended This patient's information was entered into a reminder system with a target due date for their next mammogram. Electronically signed by: Elvia Chavira DO 05/29/2024 03:19 PM EDT Dictated By: Elvia Chavira DO Signed By: <Electronically signed by Elvia Chavira DO in OV> 05/29/24 1519 DD/ 0900 TD/TT: 05/29/24 0915 Chamfering Machine Operator: Gaston Name MD SEAMAN BI PROCEDURES Final Result * (ABNORMAL) CBC (03/30/2024 10:39 AM EST) White Blood Count 4.6(L) 4.8 - 10.8 X10*3/uL [facility] Red Blood Count 4.24 4.20 - 5.50 X10*6/uL [facility] Hemoglobin 11.7(L) 12.0 - 16.0 g/dl [facility] Hematocrit 35.5(L) 37.0 - 47.0 % [facility] Mean Corpuscular Volume 83.7 80.0 - 98.0 fL [facility] Mean Corpuscular Hemoglobin 27.6 27.0 - 33.0 pg [facility] Mean Corpuscular HGB Conc 33.0 31.0 - 35.0 g/dl [facility] Red Cell Distribution Width 14.8 11.0 - 16.0 % [facility] Platelet Count 214 160 - 400 X10*3/uL [facility] Mean Platelet Volume 11.2 9.4 - 12.3 fL [facility] NRBC Pct Auto 0.0 0.0 - 0.2 /100WBC [facility] NRBC Abs Auto 0.000 0.0 - 0.012 X10*3/uL [facility] Blood Venous blood specimen / Unknown 03/30/2024 10:39 AM EST 03/30/2024 11:01 AM EST Kristi Landry MD LAB BLOOD ORDERABLES Final Result Performing Organization Address City/State/[facility] Co de Phone Number [facility] [address] [place] [phone] * Hm Pap Smear (11/23/2022) Pap Negative for intraephithelial lesion or malignancy Negative for intraephithelial lesion or malignancy, Other HPV Undetected [facility] HEALTH MAINTENANCE Final Result * HEPATITIS C AB W/REFL TO HCV RNA, QN, PCR (03/28/2021 8:10 AM EST) HEPATITIS C ANTIBODY NON-REACT GABRIELA NON-REACT [facility]ELA [facility] INDEX 0.02 <1.00 [facility] Comment: ?? HCV antibody was non-reactive. There is no laboratory ?? evidence of HCV infection. ?? In most cases, no further action is required. However, if recent HCV exposure is suspected, a test for HCV RNA (test code 67211) is suggested. ?? For additional information please refer to http://education.P[employer]ic/faq/EMT46z0 (This link is being provided for informational/ educational purposes only.) ?? 03/28/2021 8:10 AM EST Patricia James NP HISTORICAL/NON ORDERABLE LABS F inal Result Performing Organization Address [facility] de Phone Number [facility] [address] [place] [address], * HIV 1/2 ANTIGEN/ANTIBODY,FOURTH GENERATION W/RFL (03/28/2021 8:10 AM EST) Pathologist [facility] HIV-1/2 ANTIGEN AND ANTIBODIES, 4TH GENERATION W/ REFLEX NON-REACT GABRIELA NON-REACT GABRIELA [facility] Comment: HIV-1 antigen and HIV-1/HIV-2 [...] ? For additional information please refer to http://education.Pumpic/faq/JQD242 (This link is being provided for informational/ educational purposes only.) ? The performance of this assay has not been clinically validated in patients less than 2 years old. ?? 03/28/2021 8:10 AM EST us Patricia James NP LAB BLOOD ORDERABLES Final Resu lt Performing Organization Address [facility] de Phone Number [facility] [address] [place] [address], * (ABNORMAL) LIPID PANEL, STANDARD (06/15/2020 8:32 AM EDT) Pathologist [facility] Chol/HDLC Ratio 3.3 <5.0 (calc) [facility] [...] ?? Bigg BUCIO et al. LEEANN. 2013;310(19): 0927-0408 ?? (http://[employer]/faq/CYF795) Non-HDL Cholesterol 110 <130 mg/dL (calc) [facility] Comment: For patients with diabetes plus 1 major ASCVD risk ?? factor, treating to a non-HDL-C goal of <100 mg/dL ?? (LDL-C of <70 mg/dL) is considered a therapeutic ?? option. Triglycerides 62 <150 mg/dL [facility] 06/15/2020 8:32 AM EDT us Gaston Preston MD LAB BLOOD ORDERABLES Final Resul t [facility] [address] from Last 3 Months or Most Recently Relevant to Health Maintenance Insurance [facility] [address] [place] [address] Care Teams Cath Lab Relationship Specialty Start Date End Date Name, MD Gaston [address] [place] [address] PCP - General Family Medicine 04/18/15
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
== END 2024-06-10 13:41 | disposition home or self-care (01) ==
LOC: HO.HGS 13:25
PROVIDERS: PCP Internal Medicine Geriatric Medicine; Visit Provider Surgery
DX: N63.20 Unspecified lump in the left breast, unspecified quadrant (principal); R59.9 Enlarged lymph nodes, unspecified
CPT/HCPCS: 99203

== ENCOUNTER → 2024-06-10 13:24 | Outpatient (BNVA) | payer MEDICAID, SELFPAY | PROVIDERS: PCP Internal Medicine Geriatric Medicine; Visit Provider Surgery | DX: N63.23 Unspecified lump in the left breast, lower outer quadrant (principal); R59.9 Enlarged lymph nodes, unspecified | CPT/HCPCS: 99202 ==

== ENCOUNTER 2024-06-11 09:52 | Outpatient (REF) | payer MEDICAID, SELFPAY ==
--- NOTE | ~2024-06-11 | MM_ITS ---
PROCEDURE: ULTRASOUND-GUIDED bilateral BREAST BIOPSY CLINICAL INFORMATION: Right enlarged axillary lymph node and left solid mass at 4:00. COMPARISON: [facility] on PACS. TECHNIQUE: The details of the procedure, as well as the risks, benefits, and alternatives to the procedure were explained to the patient in detail and all of her questions were answered, after which, written informed consent was obtained. PROCEDURE: Right Axilla lymph node: Prior to the procedure, sonography revealed enlarged axillary lymph node with cortical thickening. A time-out was performed, the lesion intended for biopsy was targeted and the skin of the right axilla was then prepped and draped in the usual sterile fashion. Using sonographic guidance, sterile technique, and 1% lidocaine without epinephrine for local anesthesia, a total of 4 cores were obtained through the targeted area with a 14-gauge biopsy device. At the completion of tissue sampling, a single coil metallic clip was deposited at the biopsy site. An appropriate sample was obtained. Left mass 4:00 14 cm from the nipple: Prior to the procedure, sonography revealed solid mass 4:00 14 cm from the nipple. A time-out was performed, the lesion intended for biopsy was targeted and the skin of the left breast was then prepped and draped in the usual sterile fashion. Using sonographic guidance, sterile technique, and 1% lidocaine without epinephrine for local anesthesia, a total of 4 cores were obtained through the targeted area with a 14-gauge biopsy device. At the completion of tissue sampling, a single butterfly metallic clip was deposited at the biopsy site. An appropriate sample was obtained. The postprocedure 2-view direct digital mammogram reveals satisfactory positioning of the biopsy clips. The patient tolerated the procedure well and, after assuring adequate hemostasis, was discharged in good condition after reviewing postbiopsy breast care instructions. Final pathology results are pending. MM/MM diagnostic mammo unilat RT IMPRESSION: 1. Uncomplicated sonographically-guided core biopsy of the left breast and right axilla . The 2-view direct digital postprocedure mammogram reveals satisfactory positioning of the biopsy clips. 2. Final pathology results are pending. A separate report with final recommendations will be issued once these results are made available. Electronically signed by: Elvia Chavira DO 06/11/2024 01:00 PM EDKamilah
--- NOTE | ~2024-06-11 | MM_ITS ---
PROCEDURE: ULTRASOUND-GUIDED bilateral BREAST BIOPSY CLINICAL INFORMATION: Right enlarged axillary lymph node and left solid mass at 4:00. COMPARISON: [facility] on PACS. TECHNIQUE: The details of the procedure, as well as the risks, benefits, and alternatives to the procedure were explained to the patient in detail and all of her questions were answered, after which, written informed consent was obtained. PROCEDURE: Right Axilla lymph node: Prior to the procedure, sonography revealed enlarged axillary lymph node with cortical thickening. A time-out was performed, the lesion intended for biopsy was targeted and the skin of the right axilla was then prepped and draped in the usual sterile fashion. Using sonographic guidance, sterile technique, and 1% lidocaine without epinephrine for local anesthesia, a total of 4 cores were obtained through the targeted area with a 14-gauge biopsy device. At the completion of tissue sampling, a single coil metallic clip was deposited at the biopsy site. An appropriate sample was obtained. Left mass 4:00 14 cm from the nipple: Prior to the procedure, sonography revealed solid mass 4:00 14 cm from the nipple. A time-out was performed, the lesion intended for biopsy was targeted and the skin of the left breast was then prepped and draped in the usual sterile fashion. Using sonographic guidance, sterile technique, and 1% lidocaine without epinephrine for local anesthesia, a total of 4 cores were obtained through the targeted area with a 14-gauge biopsy device. At the completion of tissue sampling, a single butterfly metallic clip was deposited at the biopsy site. An appropriate sample was obtained. The postprocedure 2-view direct digital mammogram reveals satisfactory positioning of the biopsy clips. The patient tolerated the procedure well and, after assuring adequate hemostasis, was discharged in good condition after reviewing postbiopsy breast care instructions. Final pathology results are pending. MM/MM diagnostic mammo unilat LT IMPRESSION: 1. Uncomplicated sonographically-guided core biopsy of the left breast and right axilla . The 2-view direct digital postprocedure mammogram reveals satisfactory positioning of the biopsy clips. 2. Final pathology results are pending. A separate report with final recommendations will be issued once these results are made available. Electronically signed by: Elvia Chavira DO 06/11/2024 01:00 PM EDKamilah
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
--- OUTSIDE RECORDS SUMMARY | 2024-06-11 11:07 | XMS_ITS | Clinical Summary ---
Author Organization [employer] Address [address] [place] [address] 7t [place] [address] Care Team Providers Care Clin Nurse Spec Name Role Phone Name, Gaston RUSH Primary Care Provider [phone] Allergies Active Allergy Reactions Criticality Noted Date [...] TO 6 HOURS NEEDED 18 g 05/24/19 24 Active fexofenadine (Kanika) 180 MG tablet Take [...] scan was normal Most likely ligament injuries Pharmacy Technician Trainee to apply heat to affected area Flexeril [...] hours a day. 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 (C[facility]) Department [address] [phone] Provider, Population Health Generic 04/23/2024 Telephone [facility] [address] [place] [address] Kristi Landry MD 04/14/2024 Orders Only [address] [address] Name, MD Gaston Axillary mass, right (Primary Dx) 04/09/2024 Orders Only [address] [address] NameGaston MD Axillary mass, right (Primary Dx) 04/08/[address] [address] Rowdy Graham [place] May recalls 03/30/2024 11:15 AM EST Office Visit [address] [address] Kristi Landry MD Axillary mass, right (Primary Dx) 03/30/[address] [address] Kristi Landry MD from Last 3 Months Immunizations Name Administration Dates Next Due DTP 06/15/1990, 9,12/17/1985,10/09,1984 Hep B, Adolescent or Pediatric 06/24/1997,1996,07/15/1996 Hib ([facility]) 08/15/1988 IPV 01/20/1992,03/17/1986 Influenza injectable quadriv alent [...] Description 07/01/2024 10:00 AM EDT Office Visit [facility] [address] [place] [address] Name, MD Gaston [address] [place] [address] Health Maintenance Due Date Last Done Comments [...] EDT Narrative 05/29/2024 3:22 PM EDT ? [facility] ? [address] ?[place] [address] ? Ultrasound Report ? Signed ? Patient: Montero Vince,Vilbasiaie ?MR ?? #: [id number] ? : 1985 ?Acct:[id number] ? Age/Sex: 38 / F ?ADM Date: 05/29/24 ? Loc: HO.MAMMO ? Attending Dr: Gaston Preston MD ? Ordering Physician: Gaston Preston MD ?? Date of Service: 05/29/24 ?? Procedure(s): US breast BI limited mamm only ?? Accession Number(s): [id number] ? cc: Gaston Preston MD ? EXAMINATION: [...] DD/ 0930 ? TD/TT: 05/29/24 1028 ? Career Information Specialist: ? Procedure Note Tamra, Reynaldo - 05/29/2024 [facility] [address] [place] [address] Ultrasound Report Signed Patient: Raúl Resendez #: [id number] : 1985Acct:[id number] Age/Sex: 38 / FADM Date: 05/29/24 Loc: HO.MAMMO Attending Dr: Gaston Preston MD Ordering Physician: Gaston Preston MD Date of Service: 05/29/24 Procedure(s): US breast BI limited mamm only Accession Number(s): [id number] cc: Gaston Preston MD EXAMINATION: MM DIAGNOSTIC [...] 05/29/24 1519 DD/ 0930 TD/TT: 05/29/24 1028 Career Information Specialist: us Gaston Name MD IMG US PROCEDURES Final Result * BI Mammogram Diagnostic Tomosynthesis Bilateral (05/29/2024 9:00 AM EDT) Anatomical Region Laterality Modality Breast Bilateral Mammography 05/29/2024 9:0 0 AM EDT Narrative 05/29/2024 3:22 PM EDT ? [facility] ? [address] ?[place] [address] ?[phone] ? Mammography Report ? Signed ? Patient: Raúl Resendez ?MR ?? #: [id number] ? : 1985 ?Acct:[id number] ? Age/Sex: 38 / F ?ADM Date: 05/29/24 ? Loc: HO.MAMMO ? Attending Dr: Gaston Name MD ? Ordering Physician: Name,Gaston MD ?Results: 4Suspiciou ?? s Finding ? Date of Service: 05/29/24 ?Follow Up: Biopsy Recommend ?? ed ? Procedure(s): MM tomosynthesis diagnostic BI ?? Accession Number(s): [id number] ? cc: Name,Gaston RUSH ? EXAMINATION: ?? [...] DD/ 0900 ? TD/TT: 05/29/24 0915 ? Career Information Specialist: ? Procedure Note Donotuseinterpreter, Image - 05/29/2024 [facility] [address] [place] [address] Mammography Report Signed Patient: May Resendez #: [id number] : 1985Acct:[id number] Age/Sex: 38 / FADM Date: 05/29/24 Loc: HO.MAMMO Attending Dr: Gaston Preston MD Ordering Physician: Gaston Preston MDResults: 4Suspiciou s Finding Date of Service: 05/29/24Follow Up: Biopsy Recommend ed Procedure(s): MM tomosynthesis diagnostic BI Accession Number(s): [id number] cc: Gaston Preston MD EXAMINATION: MM DIAGNOSTIC [...] 05/29/24 1519 DD/ 0900 TD/TT: 05/29/24 0915 Career Information Specialist: Gaston Name IMDagoberto BI PROCEDURES Final Result * (ABNORMAL) CBC (03/30/2024 10:39 AM EST) White Blood Count 4.6(L) 4.8 - 10.8 X10*3/uL [facility] Red Blood Count 4.24 4.20 - 5.50 X10*6/uL [facility] Hemoglobin 11.7(L) 12.0 - 16.0 g/dl [facility] Hematocrit 35.5(L) 37.0 - 47.0 % [facility] Mean Corpuscular Volume 83.7 80.0 - 98.0 fL [facility] Mean Corpuscular Hemoglobin 27.6 27.0 - 33.0 pg [facility] Mean Corpuscular HGB Conc 33.0 31.0 - 35.0 g/dl [facility] Red Cell Distribution Width 14.8 11.0 - 16.0 % [facility] Platelet Count 214 160 - 400 X10*3/uL [facility] Mean Platelet Volume 11.2 9.4 - 12.3 fL [facility] NRBC Pct Auto 0.0 0.0 - 0.2 /100WBC [facility] NRBC Abs Auto 0.000 0.0 - 0.012 X10*3/uL [facility] Blood Venous blood specimen / Unknown 03/30/2024 10:39 AM EST 03/30/2024 11:01 AM EST Kristi Landry MD LAB BLOOD ORDERABLES Final Result Performing Organization Address City/State/[facility] Co de Phone Number [facility] [address] [place] [phone] * Hm Pap Smear (11/23/2022) Pap Negative for intraephithelial lesion or malignancy Negative for intraephithelial lesion or malignancy, Other HPV Undetected [facility] MAINTENANCE Final Result * HEPATITIS C [...] a test for HCV RNA (test code 93885) is suggested. ?? For additional information please refer to http://education.Genius Digital/faq/PLS96k0 (This link is being provided for informational/ educational purposes only.) ?? 03/28/2021 8:10 AM EST Patricia James NP HISTORICAL/NON ORDERABLE LABS F inal Result Performing Organization Address [facility] de Phone Number [facility] [address] [place] [address], * HIV 1/2 ANTIGEN/ANTIBODY,FOURTH GENERATION W/RFL (03/28/2021 8:10 AM EST) Pathologist [facility] HIV-1/2 ANTIGEN AND ANTIBODIES, 4TH GENERATION W/ REFLEX NON-REACT GABRIELA NON-REACT GABRIELA [facility] Comment: HIV-1 antigen and HIV-1/HIV-2 [...] ? For additional information please refer to http://education.Genius Digital/faq/NTC137 (This link is being provided for informational/ educational purposes only.) ? The performance of this assay has not been clinically validated in patients less than 2 years old. ?? 03/28/2021 8:10 AM EST us Patricia James NP LAB BLOOD ORDERABLES Final Resu lt Performing Organization Address [facility] Phone Number [facility] [address] [place] [address], * (ABNORMAL) LIPID PANEL, STANDARD (06/15/2020 8:32 AM EDT) Pathologist [facility] Chol/HDLC Ratio 3.3 <5.0 (calc) [facility] [...] ?? Bigg BUCIO et al. LEEANN. 2013;310(19): 6833-1658 ?? (http://Anafore.Rally Fit/faq/UYV920) Non-HDL Cholesterol 110 <130 mg/dL (calc) [facility] Comment: For patients with diabetes plus 1 major ASCVD risk ?? factor, treating to a non-HDL-C goal of <100 mg/dL ?? (LDL-C of <70 mg/dL) is considered a therapeutic ?? option. Triglycerides 62 <150 mg/dL [facility] 06/15/2020 8:32 AM EDT us Gaston Preston MD LAB BLOOD ORDERABLES Final Resul t [facility] [address] from Last 3 Months or Most Recently Relevant to Health Maintenance Insurance [facility] Care Teams Clin Nurse Spec Relationship Specialty Start Date End Date Name, MD Gaston [address] [place] [address] PCP - General Family Medicine 04/18/15
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
[2024-06-11] MEDS: Sodium Bicarbonate 8.4% 50 MEQ/50 ML VIAL SUBCUT (11:28)
[2024-06-11] MEDS: Lidocaine HCl 1 % 20 ML VIAL 27 ML SUBCUT (11:29)
== END 2024-06-11 09:53 | disposition home or self-care (01) ==
LOC: HO.MAMMO 09:52
PROVIDERS: Pathology Anatomic Pathology & Clinical Pathology; PCP Internal Medicine Geriatric Medicine; Visit Provider Surgery
DX: N63.23 Unspecified lump in the left breast, lower outer quadrant (principal); R59.9 Enlarged lymph nodes, unspecified; N60.32 Fibrosclerosis of left breast
CPT/HCPCS: 19083; 38505; 76942; 77065; 88184; 88185; 88300; 88305; A4648; J2003

== ENCOUNTER → 2024-06-11 10:00 | Outpatient (BNV) | payer MEDICAID, SELFPAY | PROVIDERS: PCP Internal Medicine Geriatric Medicine; Visit Provider Internal Medicine | DX: N63.23 Unspecified lump in the left breast, lower outer quadrant (principal); R59.0 Localized enlarged lymph nodes | CPT/HCPCS: 19083; 19084; 38505; 77065 ==

== ENCOUNTER 2024-06-22 13:05 | Outpatient (AMB) | payer MEDICAID, SELFPAY ==
[2024-06-22 13:07] VITALS: BP 142/85; PULSE 89; O2SAT 98; BMI 32.4
--- NOTE | 2024-06-22 13:07 | MHC.OFFVIS ---
Vital Signs 06/22/24 13:07 Height 5 ft Weight 165 lb 12.602 oz BMI 32.4 BP 142/85 H Blood Pressure Location Lt brachial Position Sitting Pulse 89 Pulse Source Pulse Oximeter Pulse Oximetry (%) 98 Oxygen Delivery Method Room Air Intake Visit Reasons: left breast ultrasound bx RESULTS 4 o'clock mass Intake Note: Patient here s/p Lt br us guided bx and Rt axilla node bx. Reports sites healing well. Patient c/o: None Accompanied by: Sister Allergies shellfish derived [SHELLFISH DERIVED] Allergy (Severe, Verified 06/22/24 13:10) SWELLING/HIVES HPI HPI left breast ultrasound bx RESULTS 4 o'clock mass: Details: She had undergone ultrasound-guided biopsy of a left breast mass and lymph nodes in the right axilla last 06/11/2024. She tolerated the procedure well. She is here to discuss the findings. Denies any new complaints. [facility] Medical History Lymph node enlargement Left breast mass Hx of LEEP (loop electrosurgical excision procedure) of cervix complicating Chest pain Atopic dermatitis Chronic allergic rhinitis Asthma Surgical History Hx of bilateral breast reduction surgery Hx of tubal ligation Social History Unable to assess alcohol history related to: Unknown Patient Tobacco Use Status: Current someday Tobacco user Tobacco use type: Cigarette Cigarettes Per Day: 2 Female Reproductive History Menstrual Age of Menarche: 13 Review of Systems Const Denies chills and Denies fever(s) Card Denies chest pain, Denies dyspnea and Denies dyspnea on exertion Resp Denies cough, Denies dyspnea and Denies dyspnea on exertion GI Denies hematochezia and Denies change in bowel habits Denies hematuria Musc Denies back pain and Denies limited range of motion Neuro Denies focal weakness and Denies convulsions Psych Denies depression and Denies mood swings Physical Exam Vital Signs: Last Vital Signs Pulse 89 06/22/24 13:07 BP 142/85 H 06/22/24 13:07 Pulse Ox 98 06/22/24 13:07 Oxygen Delivery Method Room Air 06/22/24 13:07 BMI result Body Mass Index 32.4 Const General: comfortable and no acute distress Chest Other: No obvious palpable breast masses, no hematoma, no ecchymosis on all the biopsy sites Resp Effort & Inspection: normal respiratory effort Cardio Rate: regular rate Assessment & Plan Assessment & Plan (1) Lymph node enlargement: Code(s): R59.9 - Enlarged lymph nodes, unspecified Category: Medical Plan: Status post biopsy of a left breast mass and right axillary lymph nodes. Path report for the best mesh shows a benign breast tissue with stromal fibrosis and mild fibrocystic changes. The path report for the lymph nodes in the right axilla showed reactive lymphoid tissue, and nonspecific T-cell dominant profile. There is no evidence of a B-cell lymphoproliferative disorder. I explained to her the benign nature of the pathology as above I did tell her that if she notices any changes down the line or any recurrent masses, she can come back to the office on a p.r.n. basis She is comfortable with the plan Coding Level of Care Code Est Pt Level 3 (60108) Diagnoses Lymph node enlargement R59.9
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
--- OUTSIDE RECORDS SUMMARY | 2024-06-22 14:27 | XMS_ITS | Clinical Summary ---
Author Organization [facility] Address [address] [place] [address] [address] [place] [address] Care Team Providers Care Extrusion Former Name Role Phone Name, Gaston RUSH Primary Care Provider [phone] Allergies Active Allergy Reactions Criticality Noted Date [...] scan was normal Most likely ligament injuries Supplier Quality Engineer to apply heat to affected area Flexeril [...] hours a day. 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 and she will let me know if [...] Encounters Date Type Department Care Team Description 06/22/2024 Refill [facility] MEDICINE [address] [place] [address] NameGaston MD 06/11/2024 Orders Only GENERIC EXTERNAL DATA DEPARTMENT Provider, Generic External Data 05/30/2024 Refill [facility] MEDICINE [address] [place] [address] Sofia Calix MD 05/29/2024 Orders Only [facility] MEDICINE [address] [place] [address] NameGaston MD 05/12/2024 Telephone [facility] W[facility] [address] [place] [address] Kristi Landry MD Imaging Orders 05/01/2024 Population Health Risk Score Community Care [facility] ([facility]) Department [address] [place] [phone] Provider, Population Health Generic 04/23/2024 Telephone [facility] [address] [place] [address] Kristi Landry MD 04/14/2024 Orders Only [facility] MEDICINE [address] [place] [phone] Name, MD Gaston Axillary mass, right (Primary Dx) 04/09/2024 Orders Only [facility] MED[facility]INE [address] [place] [phone] Name, MD Gaston Axillary mass, right (Primary Dx) 04/08/[address] [address] Rowdy Graham [place] May recalls 03/30/2024 11:15 AM EST Office Visit [address] [address] Kristi Landry MD Axillary mass, right (Primary Dx) 03/30/[address] [address] Kristi Landry MD from Last 3 Months Immunizations Name Administration Dates Next Due DTP 06/15/1990, 9,12/17/1985,10/09,1984 Hep B, Adolescent or Pediatric 06/24/1997,1996,07/15/1996 Hib (HbO) 08/15/1988 IPV 01/20/1992,03/17/1986 Influenza injectable quadriv alent [...] Description 07/01/2024 10:00 AM EDT Office Visit [facility] MEDICINE [address] [place] [address] Name, MD Gaston [address] [place] [address] Health Maintenance Due Date Last Done Comments Alcohol/Substance Use Screening 1996 Family Planning (PISQ) 06/02/1999 Pneumococcal Vaccine: Pediatrics (0 to 5 Years) and At-Risk Patients (6 to 49) Years) (2 of 2 - PCV) 10/28/2015 10/27/2014 COVID-19 Vaccine ( season) 2023 04/13/2021, 04/13/2020, 03/24/2020 Influenza Vaccine (#1) 2023 9, 12/07/2015, 12/25/2012, Additional history exists SDOH Screening 05/16/2024 05/17/2023 Depression Screening 05/23/2024 05/24/2023, 05/24/19 24 Tobacco Screening 03/30/2025 03/30/2024 Diagnostic Breast Imaging 06/11/20252024, 06/11/2024, 05/29/2024, Additional history exists Lipid Panel 06/15/2025 06/15/2020 Pap Smear 11/23/2025 [...] Procedure Name Priority Date/Time Associated Diagnosis Comments HEMATOXYLIN AND EOSIN STAIN Routine 06/11/2024 10:52 AM EDT US BREAST NDL CORE BIOPSY LT Routine 06/11/2024 10:45 AM EDT BI MAMMOGRAM DIAGNOSTIC RIGHT Routine 06/11/2024 10:45 AM EDT BI MAMMOGRAM DIAGNOSTIC LEFT Routine 06/11/2024 10:45 AM EDT US GUIDED BIOPSY LYMPH NODE SUPERFICIAL Routine 06/11/2024 10:45 AM EDT BI US BREAST LIMITED BILATERAL Routine 05/29/2024 [...] Recently Relevant to Health Maintenance Results * Hematoxylin and Eosin Stain (06/11/2024 10:52 AM EDT) 06/11/2024 10:5 2 AM EDT 06/11/2024 11:45 AM EDT [facility] - 06/12/2024 3:23 PM EDT ----- ------- Name: Raúl Resendez ?Age/Sex: 39/F ? : 1985 Unit#: [id number] ?? Attend Dr: Louis Gallegos MD ?Re06/11/24 ?Status: DEP REF ? Location: HO.MAMMO ?Disch: ? ----- ------- SPEC : [id number] ? RECD: 06/11/24-5 ? STATUS: ??SOUT ? REQ NUM: [id number] ? HANS: 06/11/24-1052 ? SUBM DR: Elvia Chavira DO ? ENTERED: ??06/11/24-8 ?SP TYPE: Surgical ? OTHR DR: Louis Gallegos MD ?Name,Gaston RUSH ORDERED: ??HE Stain/4, Gross Micro L4/2, GO ? COMMENTS: Part A: ??As per the specimen requisition slip the specimen ?is collected at 1052 and placed in formalin at 1103. ?Part C: ??As per the specimen requisition slip the specimen ?is collected at 1108 and placed in formalin at 1108. ? Diagnosis ?? A. ??Breast, left mass at 4 o'clock, biopsy: ??Benign breast tissue with stromal fibrosis ?? and mild fibrocystic changes; no atypia or malignancy identified. ? B. ??Lymph node, right axilla for flow cytometry, core biopsy: ??See report in its entirety ?? in the EMR - Reports/Pathology section as a scanned report (camera icon). ? C. ??Lymph node, right axilla, core biopsy: ??Cores of reactive appearing lymphoid tissue ?? with focal black pigment deposition, consistent with tattoo ink. ? Comment: Please correlate with imaging (part A) to ensure adequate sampling. ?Clinical History Left breast 4 o'clock mass, right breast axillary node ?Microscopic Description A, C. ??Microscopic sections reviewed. ? Material Received ?? A. Left breast 4 o'clock mass ?? B. Right breast axillary node for flow cytometry ?? C. Right breast axillary node ? Gross Description Received in three parts. Part A: ??Received in formalin labeled ?left breast mass 4 o'clock are 5 irregular shards and thin and delicate cylindrical threads of scott-white and shelley-yellow fibrofatty breast tissue ranging from 0.2 to 2.5 cm in greatest dimension, submitted in toto in a cassette labeled A. Part B: ??Received in flow cytometry media labeled ?right axillary node is an approximately ? CONTINUED ON NEXT PAGE ----- ------- Name: Raúl Resendez ?Age/Sex: 39/F ? : 1985 Unit#: [id number] ?? Attend Dr: Louis Gallegos MD ?Re06/11/24 ?Status: DEP REF ? Location: HO.MAMMO ?Disch: ? ----- ------- SPEC : [id number] ? RECD: 06/11/24 ? STATUS: ??SOUT ? REQ NUM: [id number] ? HANS: 06/11/24-1051 ? SUBM DR: Elvia Chavira DO ? ENTERED: ??06/11/24-8 ?SP TYPE: Surgical ? OTHR DR: Louis Gallegos MD ?Name,Gaston RUSH ORDERED: ??HE Stain/4, Gross Micro L4/2, GO ? COMMENTS: Part A: ??As per the specimen requisition slip the specimen ?is collected at 1052 and placed in formalin at 1103. ?Part C: ??As per the specimen requisition slip the specimen ?is collected at 1108 and placed in formalin at 1108. ? Gross Description ?(Continued) 1.3 cm in length cylindrical thread of shelley-pink tissue, forwarded to [facility] for flow cytometry studies as requested on the specimen requisition slip. ??Gross description only. Part C: ??Received in formalin labeled ?right axillary node are multiple irregular shards and cylindrical threads of semitranslucent, scott-shelley tissue and scant blood ranging from 0.1-1.3 cm in greatest dimension, submitted in toto in a cassette labeled C. ??CEDS This case was reviewed intradepartmentally. Copies To: ?? Louis Gallegos MD ?? [facility] ?? [email or web address] ?? [place] [address] ?? [phone] ?? Name,Gaston RUSH ?? [address] [facility] ?? [place] [address] ?? [phone] ?? Elvia Chavira DO ?? [address] [place] [address] ?? [place] [address] ?? [phone] ----- ------- Signed (signature on file) Tao Knight MD 06/12/24 1523 ? ----- ------- ? END OF REPORT ? us Generic External Data Provider LAB BLOOD ORDERAB LES Final Result [facility] [address] [place] [address] [phone] * US BREAST NDL CORE BIOPSY LT (06/11/2024 10:45 AM EDT) Anatomical Region Laterality Modality Abdomen Ultrasound 06/11/2024 10:4 5 AM EDT Narrative 06/11/2024 1:03 PM EDT ? [facility] ? [address] ?[place] [address] ? Ultrasound Report ? Signed with Addenda ? Patient: Raúl Resendez ?MR ?? #: [id number] ? : 1985 ?Acct:[id number] ? Age/Sex: 39 / F ?ADM Date: 06/11/24 ? Loc: HO.MAMMO ? Attending Dr: Louis Gallegos MD ? Ordering Physician: Louis Gallegos MD ?? Date of Service: 06/11/24 ?? Procedure(s): US breast ndl core biopsy LT ?? Accession Number(s): [id number] ? cc: Louis Gallegos MD; Gaston Preston MD ?ADDENDUM ? ADDENDUM #1 ? ADDENDUM: ?? Left breast mass 4:00 ultrasound-guided core needle biopsy: Benign ?? breast tissue with stromal fibrosis and mild fibrocystic changes no ?? atypia or malignancy identified. ? Results are benign and concordant. Recommend return to annual screening. ? Right axillary lymph node core biopsy: Cores of reactive appearing ?? lymphoid tissue with focal blastic fragment deposition consistent with ?? a tattoo ink . ?? Lymph node right axilla for flow cytometry: Nonspecific T-cell dominant ?? profile. ?? Diagnostic features of a B-cell lymphoproliferative disorder not seen. ?? No increase in blasts K or CD34 positive event identified. ? Results are benign and concordant. Recommend return to annual screening. ? Electronically signed by: ??Elvia Chavira DO ??06/19/2024 03:08 PM EDT ?? RP ? Addendum Dictated By: ?Elvia Chavira, DO ? Addendum Signed By: ? <Electronically signed by Elvia Chavira, DO in OV> ? 06/19/24 1508 ?? Addendum Cosigned By: ? DD/ ? TD/TT: 06/11/24 ? PROCEDURE: ?? ULTRASOUND-GUIDED bilateral BREAST BIOPSY ? CLINICAL INFORMATION: ?? Right enlarged axillary lymph node and left solid mass at 4:00. ? COMPARISON: ?? [facility] on PACS. ? TECHNIQUE: ?? The details of the procedure, as well as the risks, benefits, and ?? alternatives to the procedure were explained to the patient in detail ?? and all of her questions were answered, after which, written informed ?? consent was obtained. ? PROCEDURE: ? Right Axilla lymph node: ?? Prior to the procedure, sonography revealed enlarged axillary lymph ?? node with cortical thickening. A time-out was performed, the lesion ?? intended for biopsy was targeted and the skin of the right axilla was ?? then prepped and draped in the usual sterile fashion. ? Using sonographic guidance, sterile technique, and 1% lidocaine without ?? epinephrine for local anesthesia, a total of 4 cores were obtained ?? through the targeted area with a 14-gauge biopsy device. At the ?? completion of tissue sampling, a single coil metallic clip was ?? deposited at the biopsy site. ? An appropriate sample was obtained. ? Left mass 4:00 14 cm from the nipple: ?? Prior to the procedure, sonography revealed solid mass 4:00 14 cm from ?? the nipple. A time-out was performed, the lesion intended for biopsy ?? was targeted and the skin of the left breast was then prepped and ?? draped in the usual sterile fashion. ? Using sonographic guidance, sterile technique, and 1% lidocaine without ?? epinephrine for local anesthesia, a total of 4 cores were obtained ?? through the targeted area with a 14-gauge biopsy device. At the ?? completion of tissue sampling, a single butterfly metallic clip was ?? deposited at the biopsy site. ? An appropriate sample was obtained. ? The postprocedure 2-view direct digital mammogram reveals satisfactory ?? positioning of the biopsy clips. ? The patient tolerated the procedure well and, after assuring adequate ?? hemostasis, was discharged in good condition after reviewing postbiopsy ?? breast care instructions. Final pathology results are pending. ? US/US breast ndl core biopsy LT ?? IMPRESSION: ?? 1. Uncomplicated sonographically-guided core biopsy of the left breast ?? and right axilla . The 2-view direct digital postprocedure mammogram ?? reveals satisfactory positioning of the biopsy clips. ?? 2. Final pathology results are pending. A separate report with final ?? recommendations will be issued once these results are made available. ? Electronically signed by: ??Elvia Chavira DO ??06/11/2024 01:00 PM EDT ?? RP ? Dictated By: ?Elvia Chavira DO ? Signed By: ?<Electronically signed by Elvia Chavira DO in OV> ? 06/11/24 1300 ? DD/ 1045 ? TD/TT: 06/11/24 1120 ? Nat Instructor: ? Procedure Note Donotchuyinterpreter, Image - 06/19/2024 [facility] [address] [place] [address] Ultrasound Report Signed with Mary Patient: Raúl ResendezMR #: [id number] : 1985Acct:[id number] Age/Sex: 39 / FADM Date: 06/11/24 Loc: HO.MAMMO Attending Dr: Louis Gallegos MD Ordering Physician: Louis Gallegos MD Date of Service: 06/11/24 Procedure(s): breast ndl core biopsy LT Accession Number(s): [id number] cc: Louis Gallegos MD; Name,Gaston RUSH ADDENDUM ADDENDUM #1 ADDENDUM: Left breast mass 4:00 ultrasound-guided core needle biopsy: Benign breast tissue with stromal fibrosis and mild fibrocystic changes no atypia or malignancy identified. Results are benign and concordant. Recommend return to annual screening. Right axillary lymph node core biopsy: Cores of reactive appearing lymphoid tissue with focal blastic fragment deposition consistent with a tattoo ink . Lymph node right axilla for flow cytometry: Nonspecific T-cell dominant profile. Diagnostic features of a B-cell lymphoproliferative disorder not seen. No increase in blasts K or CD34 positive event identified. Results are benign and concordant. Recommend return to annual screening. Electronically signed by: Elvia Chavira DO 06/19/2024 03:08 PM EDT Addendum Dictated By: Elvia Chavira DO Addendum Signed By: <Electronically signed by DO Jessica in OV> 06/19/24 1508 Addendum Cosigned By: DD/ TD/TT: 06/11/24 PROCEDURE: ULTRASOUND-GUIDED bilateral BREAST BIOPSY CLINICAL INFORMATION: Right enlarged axillary lymph node and left solid mass at 4:00. COMPARISON: [facility] on PACS. TECHNIQUE: The details of the procedure, as well as the risks, benefits, and alternatives to the procedure were explained to the patient in detail and all of her questions were answered, after which, written informed consent was obtained. PROCEDURE: Right Axilla lymph node: Prior to the procedure, sonography revealed enlarged axillary lymph node with cortical thickening. A time-out was performed, the lesion intended for biopsy was targeted and the skin of the right axilla was then prepped and draped in the usual sterile fashion. Using sonographic guidance, sterile technique, and 1% lidocaine without epinephrine for local anesthesia, a total of 4 cores were obtained through the targeted area with a 14-gauge biopsy device. At the completion of tissue sampling, a single coil metallic clip was deposited at the biopsy site. An appropriate sample was obtained. Left mass 4:00 14 cm from the nipple: Prior to the procedure, sonography revealed solid mass 4:00 14 cm from the nipple. A time-out was performed, the lesion intended for biopsy was targeted and the skin of the left breast was then prepped and draped in the usual sterile fashion. Using sonographic guidance, sterile technique, and 1% lidocaine without epinephrine for local anesthesia, a total of 4 cores were obtained through the targeted area with a 14-gauge biopsy device. At the completion of tissue sampling, a single butterfly metallic clip was deposited at the biopsy site. An appropriate sample was obtained. The postprocedure 2-view direct digital mammogram reveals satisfactory positioning of the biopsy clips. The patient tolerated the procedure well and, after assuring adequate hemostasis, was discharged in good condition after reviewing postbiopsy breast care instructions. Final pathology results are pending. US/US breast ndl core biopsy LT IMPRESSION: 1. Uncomplicated sonographically-guided core biopsy of the left breast and right axilla . The 2-view direct digital postprocedure mammogram reveals satisfactory positioning of the biopsy clips. 2. Final pathology results are pending. A separate report with final recommendations will be issued once these results are made available. Electronically signed by: Elvia Chavira DO 06/11/2024 01:00 PM EDT Dictated By: Elvia Chavira DO Signed By: <Electronically signed by Elvia Chavira DO in OV> 06/11/24 1300 DD/ 1045 TD/TT: 06/11/24 1120 Nat Instructor: [facility] External Provider IMG US PROCEDURES Edited Result - Final * US guided biopsy lymph node superficial (06/11/2024 10:45 AM EDT) Anatomical Region Laterality Modality Ultrasound 06/11/2024 10:4 5 AM EDT Narrative 06/11/2024 1:03 PM EDT ? [facility] ? [address] ?[place] [address] ? Ultrasound Report ? Signed with Addenda ? Patient: Winston VinceRaúl ?MR ?? #: [id number] ? : 1985 ?Acct:[id number] ? Age/Sex: 39 / F ?ADM Date: 06/11/ ? Loc: HO.MAMMO ? Attending Dr: Louis Gallegos MD ? Ordering Physician: Louis Gallegos MD ?? Date of Service: 06/11/24 ?? Procedure(s): US biopsy lymph node ?? Accession Number(s): [id number] ? cc: Louis Gallegos MD; Name,Gaston RUSH ?ADDENDUM ? ADDENDUM #1 ? ADDENDUM: ?? Left breast mass 4:00 ultrasound-guided core needle biopsy: Benign ?? breast tissue with stromal fibrosis and mild fibrocystic changes no ?? atypia or malignancy identified. ? Results are benign and concordant. Recommend return to annual screening. ? Right axillary lymph node core biopsy: Cores of reactive appearing ?? lymphoid tissue with focal blastic fragment deposition consistent with ?? a tattoo ink . ?? Lymph node right axilla for flow cytometry: Nonspecific T-cell dominant ?? profile. ?? Diagnostic features of a B-cell lymphoproliferative disorder not seen. ?? No increase in blasts K or CD34 positive event identified. ? Results are benign and concordant. Recommend return to annual screening. ? Electronically signed by: ??Elvia Chavira DO ??06/19/2024 03:08 PM EDT ? Addendum Dictated By: ?Elvia Chavira, DO ? Addendum Signed By: ? <Electronically signed by Elvia Chavira, DO in OV> ? 06/19/24 1508 ?? Addendum Cosigned By: ? DD/ ? TD/TT: 06/11/24 ? PROCEDURE: ?? ULTRASOUND-GUIDED bilateral BREAST BIOPSY ? CLINICAL INFORMATION: ?? Right enlarged axillary lymph node and left solid mass at 4:00. ? COMPARISON: ?? [facility] on PACS. ? TECHNIQUE: ?? The details of the procedure, as well as the risks, benefits, and ?? alternatives to the procedure were explained to the patient in detail ?? and all of her questions were answered, after which, written informed ?? consent was obtained. ? PROCEDURE: ? Right Axilla lymph node: ?? Prior to the procedure, sonography revealed enlarged axillary lymph ?? node with cortical thickening. A time-out was performed, the lesion ?? intended for biopsy was targeted and the skin of the right axilla was ?? then prepped and draped in the usual sterile fashion. ? Using sonographic guidance, sterile technique, and 1% lidocaine without ?? epinephrine for local anesthesia, a total of 4 cores were obtained ?? through the targeted area with a 14-gauge biopsy device. At the ?? completion of tissue sampling, a single coil metallic clip was ?? deposited at the biopsy site. ? An appropriate sample was obtained. ? Left mass 4:00 14 cm from the nipple: ?? Prior to the procedure, sonography revealed solid mass 4:00 14 cm from ?? the nipple. A time-out was performed, the lesion intended for biopsy ?? was targeted and the skin of the left breast was then prepped and ?? draped in the usual sterile fashion. ? Using sonographic guidance, sterile technique, and 1% lidocaine without ?? epinephrine for local anesthesia, a total of 4 cores were obtained ?? through the targeted area with a 14-gauge biopsy device. At the ?? completion of tissue sampling, a single butterfly metallic clip was ?? deposited at the biopsy site. ? An appropriate sample was obtained. ? The postprocedure 2-view direct digital mammogram reveals satisfactory ?? positioning of the biopsy clips. ? The patient tolerated the procedure well and, after assuring adequate ?? hemostasis, was discharged in good condition after reviewing postbiopsy ?? breast care instructions. Final pathology results are pending. ? US/ biopsy lymph node ?? IMPRESSION: ?? 1. Uncomplicated sonographically-guided core biopsy of the left breast ?? and right axilla . The 2-view direct digital postprocedure mammogram ?? reveals satisfactory positioning of the biopsy clips. ?? 2. Final pathology results are pending. A separate report with final ?? recommendations will be issued once these results are made available. ? Electronically signed by: ??Elvia Chavira DO ??06/11/2024 01:00 PM EDT ? Dictated By: ?Elvia Chavira DO ? Signed By: ?<Electronically signed by Elvia Chaivra, DO in OV> ? 06/11/24 1300 ? DD/ 1045 ? TD/TT: 06/11/24 1120 ? Nat Instructor: ? Procedure Note Tamra, Image - 06/19/2024 [facility] [address] [place] [address] Ultrasound Report Signed with Addenda Patient: May Resendez #: [id number] : 1985Acct:[id number] Age/Sex: 39 / FADM Date: 06/11/24 Loc: HO.MAMMO Attending Dr: Louis Gallegos MD Ordering Physician: Louis Gallegos MD Date of Service: 06/11/24 Procedure(s): US biopsy lymph node Accession Number(s): [id number] cc: Louis Gallegos MD; Name,Gaston RUSH ADDENDUM ADDENDUM #1 ADDENDUM: Left breast mass 4:00 ultrasound-guided core needle biopsy: Benign breast tissue with stromal fibrosis and mild fibrocystic changes no atypia or malignancy identified. Results are benign and concordant. Recommend return to annual screening. Right axillary lymph node core biopsy: Cores of reactive appearing lymphoid tissue with focal blastic fragment deposition consistent with a tattoo ink . Lymph node right axilla for flow cytometry: Nonspecific T-cell dominant profile. Diagnostic features of a B-cell lymphoproliferative disorder not seen. No increase in blasts K or CD34 positive event identified. Results are benign and concordant. Recommend return to annual screening. Electronically signed by: Elvia Chavira DO 06/19/2024 03:08 PM EDT Addendum Dictated By: Elvia Chavira DO Addendum Signed By: <Electronically signed by DO Jessica in OV> 06/19/24 1508 Addendum Cosigned By: DD/ TD/TT: 06/11/24 PROCEDURE: ULTRASOUND-GUIDED bilateral BREAST BIOPSY CLINICAL INFORMATION: Right enlarged axillary lymph node and left solid mass at 4:00. COMPARISON: [facility] on PACS. TECHNIQUE: The details of the procedure, as well as the risks, benefits, and alternatives to the procedure were explained to the patient in detail and all of her questions were answered, after which, written informed consent was obtained. PROCEDURE: Right Axilla lymph node: Prior to the procedure, sonography revealed enlarged axillary lymph node with cortical thickening. A time-out was performed, the lesion intended for biopsy was targeted and the skin of the right axilla was then prepped and draped in the usual sterile fashion. Using sonographic guidance, sterile technique, and 1% lidocaine without epinephrine for local anesthesia, a total of 4 cores were obtained through the targeted area with a 14-gauge biopsy device. At the completion of tissue sampling, a single coil metallic clip was deposited at the biopsy site. An appropriate sample was obtained. Left mass 4:00 14 cm from the nipple: Prior to the procedure, sonography revealed solid mass 4:00 14 cm from the nipple. A time-out was performed, the lesion intended for biopsy was targeted and the skin of the left breast was then prepped and draped in the usual sterile fashion. Using sonographic guidance, sterile technique, and 1% lidocaine without epinephrine for local anesthesia, a total of 4 cores were obtained through the targeted area with a 14-gauge biopsy device. At the completion of tissue sampling, a single butterfly metallic clip was deposited at the biopsy site. An appropriate sample was obtained. The postprocedure 2-view direct digital mammogram reveals satisfactory positioning of the biopsy clips. The patient tolerated the procedure well and, after assuring adequate hemostasis, was discharged in good condition after reviewing postbiopsy breast care instructions. Final pathology results are pending. US/US biopsy lymph node IMPRESSION: 1. Uncomplicated sonographically-guided core biopsy of the left breast and right axilla . The 2-view direct digital postprocedure mammogram reveals satisfactory positioning of the biopsy clips. 2. Final pathology results are pending. A separate report with final recommendations will be issued once these results are made available. Electronically signed by: Elvia Chavira DO 06/11/2024 01:00 PM EDT RP Dictated By: Elvia Chavira DO Signed By: <Electronically signed by Elvia Chavira DO in OV> 06/11/24 1300 DD/ 1045 TD/TT: 06/11/24 1120 Nat Instructor: [facility] External Provider IMG US PROCEDURES Edited Result - Final * Mammogram Diagnostic Right (06/11/2024 10:45 AM EDT) Anatomical Region Laterality Modality Breast Right Mammography 06/11/2024 10:4 5 AM EDT Narrative 06/11/2024 1:03 PM EDT ? [facility] ? [address] [facility] [address] ?[place] [address] ?[phone] ? Mammography Report ? Signed with Addenda ? Patient: Raúl Resendez ?MR ?? #: [id number] ? : 1985 ?Acct:[id number] ? Age/Sex: 39 / F ?ADM Date: 04/24/25 ? Loc: HO.MAMMO ? Attending Dr: Louis Gallegos MD ? Ordering Physician: Louis Gallegos MD ?Results: 1Neg ?? ative ? Date of Service: 06/11/24 ?Follow Up: 1 Year From Orig ?? inal Mammogram ? Procedure(s): MM diagnostic mammo unilat RT ?? Accession Number(s): [id number] ? cc: Louis Gallegos MD; Gastno Preston MD ?ADDENDUM ? ADDENDUM #1 ? ADDENDUM: ?? Left breast mass 4:00 ultrasound-guided core needle biopsy: Benign ?? breast tissue with stromal fibrosis and mild fibrocystic changes no ?? atypia or malignancy identified. ? Results are benign and concordant. Recommend return to annual screening. ? Right axillary lymph node core biopsy: Cores of reactive appearing ?? lymphoid tissue with focal blastic fragment deposition consistent with ?? a tattoo ink . ?? Lymph node right axilla for flow cytometry: Nonspecific T-cell dominant ?? profile. ?? Diagnostic features of a B-cell lymphoproliferative disorder not seen. ?? No increase in blasts K or CD34 positive event identified. ? Results are benign and concordant. Recommend return to annual screening. ? Electronically signed by: ??Elvia Chavira DO ??06/19/2024 03:08 PM EDT ?? RP ? Addendum Dictated By: ?Elvia Chavira, DO ? Addendum Signed By: ? <Electronically signed by Elvia Chavira, DO in OV> ? 06/19/248 ?? Addendum Cosigned By: ? DD/ ? TD/TT: 06/11 ? PROCEDURE: ?? ULTRASOUND-GUIDED bilateral BREAST BIOPSY ? CLINICAL INFORMATION: ?? Right enlarged axillary lymph node and left solid mass at 4:00. ? COMPARISON: ?? [facility] on PACS. ? TECHNIQUE: ?? The details of the procedure, as well as the risks, benefits, and ?? alternatives to the procedure were explained to the patient in detail ?? and all of her questions were answered, after which, written informed ?? consent was obtained. ? PROCEDURE: ? Right Axilla lymph node: ?? Prior to the procedure, sonography revealed enlarged axillary lymph ?? node with cortical thickening. A time-out was performed, the lesion ?? intended for biopsy was targeted and the skin of the right axilla was ?? then prepped and draped in the usual sterile fashion. ? Using sonographic guidance, sterile technique, and 1% lidocaine without ?? epinephrine for local anesthesia, a total of 4 cores were obtained ?? through the targeted area with a 14-gauge biopsy device. At the ?? completion of tissue sampling, a single coil metallic clip was ?? deposited at the biopsy site. ? An appropriate sample was obtained. ? Left mass 4:00 14 cm from the nipple: ?? Prior to the procedure, sonography revealed solid mass 4:00 14 cm from ?? the nipple. A time-out was performed, the lesion intended for biopsy ?? was targeted and the skin of the left breast was then prepped and ?? draped in the usual sterile fashion. ? Using sonographic guidance, sterile technique, and 1% lidocaine without ?? epinephrine for local anesthesia, a total of 4 cores were obtained ?? through the targeted area with a 14-gauge biopsy device. At the ?? completion of tissue sampling, a single butterfly metallic clip was ?? deposited at the biopsy site. ? An appropriate sample was obtained. ? The postprocedure 2-view direct digital mammogram reveals satisfactory ?? positioning of the biopsy clips. ? The patient tolerated the procedure well and, after assuring adequate ?? hemostasis, was discharged in good condition after reviewing postbiopsy ?? breast care instructions. Final pathology results are pending. ? MM/MM diagnostic mammo unilat RT ?? IMPRESSION: ?? 1. Uncomplicated sonographically-guided core biopsy of the left breast ?? and right axilla . The 2-view direct digital postprocedure mammogram ?? reveals satisfactory positioning of the biopsy clips. ?? 2. Final pathology results are pending. A separate report with final ?? recommendations will be issued once these results are made available. ? Electronically signed by: ??Elvia Chavira DO ??06/11/2024 01:00 PM EDT ? Dictated By: ?Elvia Chavira DO ? Signed By: ?<Electronically signed by Elvia Chavira, DO in OV> ? 06/11/24 1300 ? DD/ 1045 ? TD/TT: 06/11/24 1120 ? Nat Instructor: ? Procedure Note Donotuseinterpreter, Image - 06/19/2024 [facility] [address] [place] [address] Dr. [place], [place] [address] Mammography Report Signed with Addenda Patient: Raúl ResendezMR #: [id number] : 1985Acct:[id number] Age/Sex: 39 / FADM Date: 06/11/24 Loc: HO.MAMMO Attending Dr: Louis Gallegos MD Ordering Physician: Louis Gallegos MDResults: 1Neg ative Date of Service: 06/11/24Follow Up: 1 Year From Orig inal Mammogram Procedure(s): MM diagnostic mammo unilat RT Accession Number(s): [id number] cc: Louis Gallegos MD; Name,Gaston RUSH ADDENDUM ADDENDUM #1 ADDENDUM: Left breast mass 4:00 ultrasound-guided core needle biopsy: Benign breast tissue with stromal fibrosis and mild fibrocystic changes no atypia or malignancy identified. Results are benign and concordant. Recommend return to annual screening. Right axillary lymph node core biopsy: Cores of reactive appearing lymphoid tissue with focal blastic fragment deposition consistent with a tattoo ink . Lymph node right axilla for flow cytometry: Nonspecific T-cell dominant profile. Diagnostic features of a B-cell lymphoproliferative disorder not seen. No increase in blasts K or CD34 positive event identified. Results are benign and concordant. Recommend return to annual screening. Electronically signed by: Elvia Chavira DO 06/19/2024 03:08 PM EDT Addendum Dictated By: Elvia Chavira DO Addendum Signed By: <Electronically signed by DO Jessica in OV> 06/19/24 1508 Addendum Cosigned By: DD/ TD/TT: 06/11/24 PROCEDURE: ULTRASOUND-GUIDED bilateral BREAST BIOPSY CLINICAL INFORMATION: Right enlarged axillary lymph node and left solid mass at 4:00. COMPARISON: [facility] on PACS. TECHNIQUE: The details of the procedure, as well as the risks, benefits, and alternatives to the procedure were explained to the patient in detail and all of her questions were answered, after which, written informed consent was obtained. PROCEDURE: Right Axilla lymph node: Prior to the procedure, sonography revealed enlarged axillary lymph node with cortical thickening. A time-out was performed, the lesion intended for biopsy was targeted and the skin of the right axilla was then prepped and draped in the usual sterile fashion. Using sonographic guidance, sterile technique, and 1% lidocaine without epinephrine for local anesthesia, a total of 4 cores were obtained through the targeted area with a 14-gauge biopsy device. At the completion of tissue sampling, a single coil metallic clip was deposited at the biopsy site. An appropriate sample was obtained. Left mass 4:00 14 cm from the nipple: Prior to the procedure, sonography revealed solid mass 4:00 14 cm from the nipple. A time-out was performed, the lesion intended for biopsy was targeted and the skin of the left breast was then prepped and draped in the usual sterile fashion. Using sonographic guidance, sterile technique, and 1% lidocaine without epinephrine for local anesthesia, a total of 4 cores were obtained through the targeted area with a 14-gauge biopsy device. At the completion of tissue sampling, a single butterfly metallic clip was deposited at the biopsy site. An appropriate sample was obtained. The postprocedure 2-view direct digital mammogram reveals satisfactory positioning of the biopsy clips. The patient tolerated the procedure well and, after assuring adequate hemostasis, was discharged in good condition after reviewing postbiopsy breast care instructions. Final pathology results are pending. MM/MM diagnostic mammo unilat RT IMPRESSION: 1. Uncomplicated sonographically-guided core biopsy of the left breast and right axilla . The 2-view direct digital postprocedure mammogram reveals satisfactory positioning of the biopsy clips. 2. Final pathology results are pending. A separate report with final recommendations will be issued once these results are made available. Electronically signed by: Elvia Chavira DO 06/11/2024 01:00 PM EDT Dictated By: Elvia Chavira DO Signed By: <Electronically signed by Elvia Chavira DO in OV> 06/11/24 1300 DD/ 1045 TD/TT: 06/11/24 1120 Nat Instructor: [facility] External Provider IMG BI PROCEDURES Edited Result - Final * BI Mammogram Diagnostic Left (06/11/2024 10:45 AM EDT) Anatomical Region Laterality Modality Breast Left Mammography 06/11/2024 10:4 5 AM EDT Narrative 06/11/2024 1:03 PM EDT ? [facility] ? [address] ?[place], [place] [address] ?[phone] ? Mammography Report ? Signed with Addenda ? Patient: Raúl Resendez ?MR ?? #: [id number] ? : 1985 ?Acct:[id number] ? Age/Sex: 39 / F ?ADM Date: 06/11/24 ? Loc: HO.MAMMO ? Attending Dr: Luois Gallegos MD ? Ordering Physician: Louis Gallegos MD ?Results: 1Neg ?? ative ? Date of Service: 06/11/24 ?Follow Up: 1 Year From Orig ?? inal Mammogram ? Procedure(s): MM diagnostic mammo unilat LT ?? Accession Number(s): [id number] ? cc: Louis Gallegos MD; Mohan,Gaston RUSH ?ADDENDUM ? ADDENDUM #1 ? ADDENDUM: ?? Left breast mass 4:00 ultrasound-guided core needle biopsy: Benign ?? breast tissue with stromal fibrosis and mild fibrocystic changes no ?? atypia or malignancy identified. ? Results are benign and concordant. Recommend return to annual screening. ? Right axillary lymph node core biopsy: Cores of reactive appearing ?? lymphoid tissue with focal blastic fragment deposition consistent with ?? a tattoo ink . ?? Lymph node right axilla for flow cytometry: Nonspecific T-cell dominant ?? profile. ?? Diagnostic features of a B-cell lymphoproliferative disorder not seen. ?? No increase in blasts K or CD34 positive event identified. ? Results are benign and concordant. Recommend return to annual screening. ? Electronically signed by: ??Elvia Chavira DO ??06/19/2024 03:08 PM EDT ? Addendum Dictated By: ?Elvia Chavira, DO ? Addendum Signed By: ? <Electronically signed by Elvia Chavira, DO in OV> ? 06/19/24 1508 ?? Addendum Cosigned By: ? DD/ ? TD/TT: 06/11/24 ? PROCEDURE: ?? ULTRASOUND-GUIDED bilateral BREAST BIOPSY ? CLINICAL INFORMATION: ?? Right enlarged axillary lymph node and left solid mass at 4:00. ? COMPARISON: ?? [facility] on PACS. ? TECHNIQUE: ?? The details of the procedure, as well as the risks, benefits, and ?? alternatives to the procedure were explained to the patient in detail ?? and all of her questions were answered, after which, written informed ?? consent was obtained. ? PROCEDURE: ? Right Axilla lymph node: ?? Prior to the procedure, sonography revealed enlarged axillary lymph ?? node with cortical thickening. A time-out was performed, the lesion ?? intended for biopsy was targeted and the skin of the right axilla was ?? then prepped and draped in the usual sterile fashion. ? Using sonographic guidance, sterile technique, and 1% lidocaine without ?? epinephrine for local anesthesia, a total of 4 cores were obtained ?? through the targeted area with a 14-gauge biopsy device. At the ?? completion of tissue sampling, a single coil metallic clip was ?? deposited at the biopsy site. ? An appropriate sample was obtained. ? Left mass 4:00 14 cm from the nipple: ?? Prior to the procedure, sonography revealed solid mass 4:00 14 cm from ?? the nipple. A time-out was performed, the lesion intended for biopsy ?? was targeted and the skin of the left breast was then prepped and ?? draped in the usual sterile fashion. ? Using sonographic guidance, sterile technique, and 1% lidocaine without ?? epinephrine for local anesthesia, a total of 4 cores were obtained ?? through the targeted area with a 14-gauge biopsy device. At the ?? completion of tissue sampling, a single butterfly metallic clip was ?? deposited at the biopsy site. ? An appropriate sample was obtained. ? The postprocedure 2-view direct digital mammogram reveals satisfactory ?? positioning of the biopsy clips. ? The patient tolerated the procedure well and, after assuring adequate ?? hemostasis, was discharged in good condition after reviewing postbiopsy ?? breast care instructions. Final pathology results are pending. ? MM/MM diagnostic mammo unilat LT ?? IMPRESSION: ?? 1. Uncomplicated sonographically-guided core biopsy of the left breast ?? and right axilla . The 2-view direct digital postprocedure mammogram ?? reveals satisfactory positioning of the biopsy clips. ?? 2. Final pathology results are pending. A separate report with final ?? recommendations will be issued once these results are made available. ? Electronically signed by: ??Elvia Chavira DO ??06/11/2024 01:00 PM EDT ? Dictated By: ?Elvia Chavira DO ? Signed By: ?<Electronically signed by Elvia Chavira, DO in OV> ? 06/11/24 1300 ? DD/ 1045 ? TD/TT: 06/11/24 1120 ? Nat Instructor: ? Procedure Note Tamra, Image - 06/19/2024 [facility] [address] [place] [address] Dr. [place], [place] [id number] Mammography Report Signed with Mary Patient: Raúl Resendez #: [id number] : 1985Acct:[id number] Age/Sex: 39 / FADM Date: 06/11/24 Loc: HO.MAMMO Attending Dr: Louis Gallegos MD Ordering Physician: Louis Gallegos MDResults: 1Neg ative Date of Service: 06/11/24Follow Up: 1 Year From [facility] Mammogram Procedure(s): MM diagnostic mammo unilat LT Accession Number(s): [id number] cc: Louis Gallegos MD; Name,Gaston RUSH ADDENDUM ADDENDUM #1 ADDENDUM: Left breast mass 4:00 ultrasound-guided core needle biopsy: Benign breast tissue with stromal fibrosis and mild fibrocystic changes no atypia or malignancy identified. Results are benign and concordant. Recommend return to annual screening. Right axillary lymph node core biopsy: Cores of reactive appearing lymphoid tissue with focal blastic fragment deposition consistent with a tattoo ink . Lymph node right axilla for flow cytometry: Nonspecific T-cell dominant profile. Diagnostic features of a B-cell lymphoproliferative disorder not seen. No increase in blasts K or CD34 positive event identified. Results are benign and concordant. Recommend return to annual screening. Electronically signed by: Elvia Chavira DO 06/19/2024 03:08 PM EDT Addendum Dictated By: Elvia Chavira DO Addendum Signed By: <Electronically signed by DO Jessica in OV> 06/19/24 1508 Addendum Cosigned By: DD/ TD/TT: 06/11/24 PROCEDURE: ULTRASOUND-GUIDED bilateral BREAST BIOPSY CLINICAL INFORMATION: Right enlarged axillary lymph node and left solid mass at 4:00. COMPARISON: [facility]ors on PACS. TECHNIQUE: The details of the procedure, as well as the risks, benefits, and alternatives to the procedure were explained to the patient in detail and all of her questions were answered, after which, written informed consent was obtained. PROCEDURE: Right Axilla lymph node: Prior to the procedure, sonography revealed enlarged axillary lymph node with cortical thickening. A time-out was performed, the lesion intended for biopsy was targeted and the skin of the right axilla was then prepped and draped in the usual sterile fashion. Using sonographic guidance, sterile technique, and 1% lidocaine without epinephrine for local anesthesia, a total of 4 cores were obtained through the targeted area with a 14-gauge biopsy device. At the completion of tissue sampling, a single coil metallic clip was deposited at the biopsy site. An appropriate sample was obtained. Left mass 4:00 14 cm from the nipple: Prior to the procedure, sonography revealed solid mass 4:00 14 cm from the nipple. A time-out was performed, the lesion intended for biopsy was targeted and the skin of the left breast was then prepped and draped in the usual sterile fashion. Using sonographic guidance, sterile technique, and 1% lidocaine without epinephrine for local anesthesia, a total of 4 cores were obtained through the targeted area with a 14-gauge biopsy device. At the completion of tissue sampling, a single butterfly metallic clip was deposited at the biopsy site. An appropriate sample was obtained. The postprocedure 2-view direct digital mammogram reveals satisfactory positioning of the biopsy clips. The patient tolerated the procedure well and, after assuring adequate hemostasis, was discharged in good condition after reviewing postbiopsy breast care instructions. Final pathology results are pending. MM/MM diagnostic mammo unilat LT IMPRESSION: 1. Uncomplicated sonographically-guided core biopsy of the left breast and right axilla . The 2-view direct digital postprocedure mammogram reveals satisfactory positioning of the biopsy clips. 2. Final pathology results are pending. A separate report with final recommendations will be issued once these results are made available. Electronically signed by: Elvia Chavira DO 06/11/2024 01:00 PM EDT Dictated By: Elvia Chavira DO Signed By: <Electronically signed by Elvia Chavira DO in OV> 06/11/24 1300 DD/ 1045 TD/TT: 06/11/24 1120 Nat Instructor: [facility] External Provider IMG BI PROCEDURES Edited Result - Final * BI US Breast Limited Bilateral (05/29/2024 9:30 AM EDT) Anatomical Region Laterality Modality Breast Bilateral Ultrasound 05/29/2024 9:30 AM EDT Narrative 05/29/2024 3:22 PM EDT ? [facility] ? [address] ?[place] [address] ? Ultrasound Report ? Signed ? Patient: Winston Vince,Vilbasiaie ?MR ?? #: [id number] ? : 1985 ?Acct:[id number] ? Age/Sex: 38 / F ?ADM Date: 05/29/24 ? Loc: HO.MAMMO ? Attending Dr: Gaston Preston MD ? Ordering Physician: Gaston Preston MD ?? Date of Service: 05/29/24 ?? Procedure(s): US breast BI limited mamm only ?? Accession Number(s): [id number] ? cc: Gaston Preston MD ? EXAMINATION: [...] DD/ 0930 ? TD/TT: 05/29/24 1028 ? Nat Instructor: ? Procedure Note Tamra, Image - 05/29/2024 [facility] [address] [place] [address] Ultrasound Report Signed Patient: Raúl ResendezMR #: [id number] : 1985Acct:[id number] Age/Sex: 38 / FADM Date: 05/29/24 Loc: HO.MAMMO Attending Dr: Gaston Preston MD Ordering Physician: Gaston Preston MD Date of Service: 05/29/24 Procedure(s): US breast BI limited mamm only Accession Number(s): [id number] cc: Gaston Preston MD EXAMINATION: MM DIAGNOSTIC [...] 05/29/24 1519 DD/ 0930 TD/TT: 05/29/24 1028 Nat Instructor: us Gaston Name MD IMG US PROCEDURES Final Result * BI Mammogram Diagnostic Tomosynthesis Bilateral (05/29/2024 9:00 AM EDT) Anatomical Region Laterality Modality Breast Bilateral Mammography 05/29/2024 9:00 AM EDT Narrative 05/29/2024 3:22 PM EDT ? [facility] ? [address] [facility] ?[place] [address] ?[phone] ? Mammography Report ? Signed ? Patient: Raúl Resendez ?MR ?? #: [id number] ? : 1985 ?Acct:[id number] ? Age/Sex: 38 / F ?ADM Date: 05/29/24 ? Loc: HO.MAMMO ? Attending Dr: Gaston Name MD ? Ordering Physician: Name,Gaston MD ?Results: 4Suspiciou ?? s Finding ? Date of Service: 05/29/24 ?Follow Up: Biopsy Recommend ?? ed ? Procedure(s): MM tomosynthesis diagnostic BI ?? Accession Number(s): [id number] ? cc: Name,Gaston RUSH ? EXAMINATION: ?? [...] DD/ 0900 ? TD/TT: 05/29/24 0915 ? Nat Instructor: ? Procedure Note Donotuseinterpreter, Image - 05/29/2024 [facility] [address] [place] [address] Mammography Report Signed Patient: May Resendez #: [id number] : 1985Acct:[id number] Age/Sex: 38 / FADM Date: 05/29/24 Loc: HO.MAMMO Attending Dr: Gaston Preston MD Ordering Physician: Gaston Preston MDResults: 4Suspiciou s Finding Date of Service: 05/29/24Follow Up: Biopsy Recommend ed Procedure(s): MM tomosynthesis diagnostic BI Accession Number(s): [id number] cc: Gaston Preston MD EXAMINATION: MM DIAGNOSTIC [...] 05/29/24 1519 DD/ 0900 TD/TT: 05/29/24 0915 Nat Instructor: us Gaston Name MD SEAMAN BI PROCEDURES Final Result * (ABNORMAL) CBC (03/30/2024 10:39 AM EST) White Blood Count 4.6(L) 4.8 - 10.8 X10*3/uL [facility] Red Blood Count 4.24 4.20 - 5.50 X10*6/uL [facility] Hemoglobin 11.7(L) 12.0 - 16.0 g/dl [facility] Hematocrit 35.5(L) 37.0 - 47.0 % [facility] Mean Corpuscular Volume 83.7 80.0 - 98.0 fL [facility] Mean Corpuscular Hemoglobin 27.6 27.0 - 33.0 pg [facility] Mean Corpuscular HGB Conc 33.0 31.0 - 35.0 g/dl [facility] Red Cell Distribution Width 14.8 11.0 - 16.0 % [facility] Platelet Count 214 160 - 400 X10*3/uL [facility] Mean Platelet Volume 11.2 9.4 - 12.3 fL [facility] NRBC Pct Auto 0.0 0.0 - 0.2 /100WBC [facility] NRBC Abs Auto 0.000 0.0 - 0.012 X10*3/uL [facility] Blood Venous blood specimen / Unknown 03/30/2024 10:39 AM EST 03/30/2024 11:01 AM EST Kristi Landry MD LAB BLOOD ORDERABLES Final Result Performing Organization Address City/State/[facility] Co de Phone Number [facility] [address] [place] [phone] * Hm Pap Smear (11/23/2022) Pap Negative for intraephithelial lesion or malignancy Negative for intraephithelial lesion or malignancy, Other HPV Undetected Kina [facility] [employer] Final Result * HEPATITIS C [...] a test for HCV RNA (test code 61585) is suggested. ?? For additional information please refer to http://education.Carticipate/faq/IUZ50e3 (This link is being provided for informational/ educational purposes only.) ?? 03/28/2021 8:10 AM EST us Patricia James NP HISTORICAL/NON ORDERABLE LABS F inal Result Performing Organization Address [facility] Phone Number [facility] [address] [place] [address], * HIV 1/2 ANTIGEN/ANTIBODY,FOURTH GENERATION W/RFL (03/28/2021 8:10 AM EST) Pathologist [facility] HIV-1/2 ANTIGEN AND ANTIBODIES, 4TH GENERATION W/ REFLEX NON-REACT GABRIELA NON-REACT GABRIELA [facility] Comment: HIV-1 antigen and HIV-1/HIV-2 [...] ? For additional information please refer to http://education.[employer].Biocontrol/faq/QCD782 (This link is being provided for informational/ educational purposes only.) ? The performance of this assay has not been clinically validated in patients less than 2 years old. ?? 03/28/2021 8:10 AM EST us Patricia James NP LAB BLOOD ORDERABLES Final Resu lt Performing Organization Address [facility] Phone Number [facility] [address] [place] [address], * (ABNORMAL) LIPID PANEL, STANDARD (06/15/2020 8:32 AM EDT) [facility] Chol/HDLC Ratio 3.3 <5.0 (calc) [facility] [...] ?? Bigg BUCIO et al. LEEANN. 2013;310(19): 2670-9981 ?? (http://[employer].Mobile Sorcery/faq/CJK978) Non-HDL Cholesterol 110 <130 mg/dL (calc) [facility] Comment: For patients with diabetes plus 1 major ASCVD risk ?? factor, treating to a non-HDL-C goal of <100 mg/dL ?? (LDL-C of <70 mg/dL) is considered a therapeutic ?? option. Triglycerides 62 <150 mg/dL [facility] 06/15/2020 8:32 AM EDT us Gaston Preston MD LAB BLOOD ORDERABLES Final Resul t [facility] [address] from Last 3 Months or Most Recently Relevant to Health Maintenance [facility] [address] [place] [address] Care Teams Extrusion Former Relationship Specialty Start Date End Date Name, MD Gaston [address] [place] [id number] PCP - General Family Medicine 04/18/15
--- OUTSIDE RECORDS SUMMARY | 2024-06-22 14:27 | XMS_ITS | Encounter Summary ---
Author Organization [employer] Address [address] [place] [address] [address] [place] [address] Care Team Providers Care Section Cutter Name Role Phone Name, Gaston RUSH Primary Care Provider Reason for Visit * Reason Comments Med Refill Encounter Details Date Type Department Care Team ([facility] st Contact Info) Description 06/22/2024 Refill [facility] [address] [place] [address] Name, MD Gaston [address] [place] [address] Social History Tobacco Use Types Packs/Day Years [...] AM EDT documented as of this encounter Plan of Treatment Upcoming Encounters Date Type Department Care Team (Late st Contact Info) Description 07/01/2024 10:00 AM EDT Office Visit [facility] [address] [place] [address] NameGaston MD [address] [place] [address] documented as of this encounter Visit Diagnoses Not on filedocumented in this encounter Additional Health Concerns Assessment Noted Time PHQ-9 Depression Total Score: 0 05/24/19 24 10:40 AM EDT documented as of this encounter Care Teams Section Cutter Relationship Specialty Start Date End Date NameGaston MD [address] [place] [id number] PCP - General Family Medicine 04/18/15 documented as of this encounter
== END 2024-06-22 13:23 | disposition home or self-care (01) ==
LOC: HO.HGS 13:06
PROVIDERS: PCP Internal Medicine Geriatric Medicine; Visit Provider Surgery
DX: R59.9 Enlarged lymph nodes, unspecified (principal)
CPT/HCPCS: 99213

== ENCOUNTER → 2024-06-22 13:05 | Outpatient (BNVA) | payer MEDICAID, SELFPAY | PROVIDERS: PCP Internal Medicine Geriatric Medicine; Visit Provider Surgery | DX: R59.9 Enlarged lymph nodes, unspecified (principal); Z98.890 Other specified postprocedural states | CPT/HCPCS: 99212 ==

== ENCOUNTER 2024-11-25 17:13 | Outpatient (REF) | payer MEDICAID, SELFPAY ==
[2024-11-25 18:21] LABS: Appearance Urine Clear; Glucose Urine UA Negative (Negative); PH 5.5 (5.0-9.0); Specific Gravity - Urine 1.015 (1.005-1.025); UMIC TRIGGER UACC YES
[2024-11-25 18:36] LABS: UACC Culture Trigger YES
== END 2024-11-25 17:14 | disposition home or self-care (01) ==
LOC: HO.HHCLNP 17:13
DX: M54.9 Dorsalgia, unspecified (principal)
CPT/HCPCS: 81001; 87086